=== PATIENT | male | born 1985 | race Caucasian/White ===

== ENCOUNTER → 2017-06-12 | Outpatient (CLI) | payer OTHER ==
[~2017-06-12] MED LIST: AMOX500T PO; AMOX875T PO; CEFA500C2 PO; LVQ750 PO; METR-163 PO; OPTIRAY 320 IV PRN; OXYC1TAB3 PO; PSYL48.59 PO
--- NOTE | 2017-06-12 17:08 | DIAGNOSTIC IMAGING REPORT ---
CT ABD/PELVIS IV AND ORAL CONT CLINICAL HISTORY: ACUTE ABDOMINAL PAIN, R/O DIVERTICULITIS COMPARISON STUDY: 09/12/2013 TECHNIQUE: Following the IV administration of 94 mL of Optiray-320, CT scan of the abdomen and pelvis was performed from the lung bases to the proximal femurs. Images are reviewed in the axial, sagittal, and coronal planes. IV contrast was administered without complication. A dose lowering technique was utilized adhering to the principles of ALARA. CT DOSE: 674.61 mGy.cm FINDINGS: Lower chest: There is a small hiatal hernia. Liver: The contrast-enhanced liver is normal in size, contour, and attenuation. There is no intrahepatic biliary ductal dilatation. The hepatic veins and portal veins are patent. Gallbladder: Unremarkable. Spleen: Normal in size and attenuation. Pancreas: Unremarkable. Adrenal glands: Unremarkable. Kidneys: There is symmetric renal cortical enhancement. The kidneys are normal in size without hydronephrosis. Bowel: There are no transition zones indicate bowel obstruction. The appendix appears normal. There is sigmoid wall thickening and infiltration the perisigmoid fat. There is an inflamed diverticulum. The findings are indicative of acute diverticulitis. There are no fluid collections to indicate a peridiverticular abscess. Peritoneum: There is no intraperitoneal free air or abdominal ascites. Vasculature: The abdominal aorta is normal in course and caliber. Adenopathy: None. Pelvic viscera: The bladder, and pelvic viscera are unremarkable. Skeletal structures: No destructive osseous lesions are seen. IMPRESSION: 1. Acute sigmoid diverticulitis. No evidence of abscess. Electronically signed by: Mike iLndo M.D. 06/12/2017 5:06 PM Dictated Date/Time: 06/12/2017 5:03 PM
== END | disposition home or self-care (01) ==
LOC: C.CTS 14:45
PROVIDERS: ATTEND Nurse Practitioner Family
DX: R10.32 Left lower quadrant pain (principal); K57.30 Diverticulosis of large intestine without perforation or abscess without bleeding

== ENCOUNTER → 2017-06-12 | Outpatient (CLI) | payer OTHER ==
[~2017-06-12] MED LIST changes: -OPTIRAY 320 IV PRN
[2017-06-12 17:53] LABS: BASO % 0.2 %; BASO ABS # 0.04 K/uL (0-0.2); COMPLETE YES; EOS % 1.9 %; HEMATOCRIT 46.4 % (42-52); IG% 0.5 %; LYMPH % 10.7 %; LYMPH ABS # 1.77 K/uL (1.2-3.4); MEAN CORPUSCULAR HEMOGLOBIN 29.1 pg (25-34); MEAN CORPUSCULAR HGB CONC 34.3 g/dl (32-36); MEAN PLATELET VOLUME 11.8 fL (7.4-10.4); MONO % 9.6 %; NEUT % 77.1 %; PLATELET COUNT 237 K/uL (130-400); RED BLOOD COUNT 5.46 M/uL (4.7-6.1); WHITE BLOOD COUNT 16.59 K/uL (4.8-10.8)
[2017-06-12 18:46] LABS: BLOOD UREA NITROGEN 14 mg/dl (7-18); BUN/CREATININE RATIO 13.1 (10-20); CALCIUM 9.3 mg/dl (8.5-10.1); CARBON DIOXIDE 27 mmol/L (21-32); CHLORIDE 104 mmol/L (98-107); GLUCOSE 122 mg/dl (70-99); SODIUM 139 mmol/L (136-145)
== END | disposition home or self-care (01) ==
LOC: C.LABPVFM 13:36
PROVIDERS: ATTEND Nurse Practitioner Family
DX: R10.9 Unspecified abdominal pain (principal)

== ENCOUNTER 2017-06-13 13:56 | Emergency (ER) | payer OTHER ==
[~2017-06-13] VITALS: Ht 185.4 cm; Wt 104.2 kg
[~2017-06-13 13:56] MED LIST changes: -AMOX500T PO; -AMOX875T PO; -OXYC1TAB3 PO; -PSYL48.59 PO
[2017-06-13 13:59] VITALS: TEMP 36.8; Ht 185.4 cm; Wt 104.2 kg
[2017-06-13] MEDS ORDERED: OXYC1TAB3 PO (14:48)
--- NOTE | 2017-06-13 15:06 | EMERGENCY ROOM VISIT NOTE ---
History Report prepared by Yair: Reba Perez Under the Supervision of: Dr. Joe Torres D.O. First contact with patient: 14:39 Chief Complaint: ABDOMINAL PAIN Stated Complaint: DIVERTICULITIS Nursing Triage Summary: Diverticulitis History of Present Illness The patient is a 32 year old male who presents to the Emergency Room with complaints of persistent abdominal pain starting yesterday. The patient was diagnosed with diverticulitis yesterday through CT scan. He was prescribed Flagyl and Levaquin. He has been taking the antibiotics without relief. He was not prescribed any pain medications. He has been taking Aleve with some relief. His PCP had instructed that if he was still having pain after a day, he should come to the Emergency Room to receive IV antibiotics. He has worsening pain with sneezing. He has pain relief with lying down. The patient also complains of nausea but denies vomiting. He reports a loss of appetite. He denies fevers, chills, or any other complaints. He does not have any other medical problems. He denies any history of abdominal surgeries. Source of History: patient Onset: yesterday Position: abdomen Timing: other (persistent) Modifying Factors (Worsening): other (sneezing) Modifying Factors (Relieving): other (Aleve with some relief; antibiotics as prescribed without relief; relief with lying down) Associated Symptoms: + nausea, No fevers, No chills, No vomiting Review of Systems See HPI for pertinent positives & negatives. A total of 10 systems reviewed and were otherwise negative. Past Medical & Surgical Medical Problems: (1) elbow surgery (2) knee surgery (3) [place] Teeth Removal Family History Diabetes mellitus Social History Smoking Status: Never Smoker Alcohol Use: none Marital Status: Housing Status: lives with family Occupation Status: employed Current/Historical Medications Scheduled Levofloxacin (Levofloxacin), 750 MG PO DAILY Metronidazole (Flagyl), 500 MG PO Q6H Scheduled PRN Oxycodone Immediate Rel Tab (Roxicodone Ir), 1-2 TAB PO Q4H PRN for Severe Pain Allergies Coded Allergies: No Known Allergies (Verified , 09/11/13) Physical Exam Vital Signs Date Time Temp Pulse Resp B/P (MAP) Pulse Ox O2 Delivery O2 Flow Rate FiO2 06/13/17 15:08 82 18 143/77 96 06/13/17 13:59 36.8 80 15 141/92 95 Room Air Physical Exam GENERAL: Patient is awake, alert, and in no acute distress. Patient is resting comfortably and showing no signs of anxiety EYES: The conjunctivae are clear. The pupils are round and reactive. EARS, NOSE, MOUTH AND THROAT: The nose is without any evidence of any deformity. Mucous membranes are moist tongue is midline NECK: The neck is nontender and supple. RESPIRATORY: Normal respiratory effort is noted there is no evidence of wheezing rhonchi or rales CARDIOVASCULAR: Regular rate and rhythm noted there no murmurs rubs or gallops normal S1 normal S2 GASTROINTESTINAL: The abdomen is mildly distended but soft. Bowel sounds are present in all quadrants. Abdomen is tender in the left lower quadrant. There is no guarding or rigidity. MUSCULOSKELETAL/EXTREMITIES: There is no evidence of gross deformity full range of motion is noted in the hips and shoulders SKIN: There is no obvious evidence of any rash. There are no petechiae, pallor or cyanosis noted. NEUROLOGIC: Patient is awake alert and oriented x3 Medical Decision & Procedures ED Course 1439: The patient was evaluated in room B10. A complete history and physical examination were performed. 1502: Upon reevaluation, the patient is resting comfortably. I discussed the results and treatment plan with him. He verbalized agreement of the treatment plan. He was discharged home. Medical Decision Prior records/ancillary studies reviewed. Triage Nursing notes reviewed. The patient's history was concerning for abdominal pain. Differential diagnosis: Etiologies such as appendicitis, diverticulitis, PUD, biliary pathology, UTI, pancreatitis, obstruction, mesenteric ischemia, aortic pathology, infections, inflammatory bowel disease, renal colic, as well as others were entertained. Medication Reconciliation: I attest that I have personally reviewed the patient' s current medications list. Patient was found to have a slightly elevated blood pressure due to circumstances. I do not believe that the patient requires hypertension monitoring. The patient is a 32-year-old male who presented to the emergency department for left lower quadrant abdominal pain. The patient was seen by his family doctor and had an outpatient CT yesterday which revealed diverticulitis. The patient was told to go to the emergency department in 24 hours for IV antibiotics if his pain did not resolve although he was not started on pain medication. The patient's physical exam was not consistent with an acute surgical abdomen. I reviewed the patient's laboratory radiographic studies from yesterday. His CT did not reveal any signs of perforation or abscess. The patient does not a fever. He was started on Levaquin and Flagyl by his primary care physician and states that he was compliant with this medication to date. He was encouraged to continue all medications as prescribed and follow-up with his family doctor. He was encouraged to return to emergency department if he develop worsening pain high fever rigid abdomen or if need arises. Impression Primary Impression: Diverticulitis Scribe Attestation The scribe's documentation has been prepared under my direction and personally reviewed by me in its entirety. I confirm that the note above accurately reflects all work, treatment, procedures, and medical decision making performed by me. Departure Information Dispostion Home / Self-Care Prescriptions Oxycodone Immediate Rel Tab (ROXICODONE IR) 5 Mg Tab 1-2 TAB PO Q4H Y for Severe Pain, #24 TAB Prov: Joe Torres, DO 06/13/17 Referrals No Doctor, Assigned (PCP) Forms Call Back Authorization, HOME CARE DOCUMENTATION FORM, IMPORTANT VISIT INFORMATION Patient Instructions Diverticulitis Christian, My [facility] Additional Instructions Continue all medications as prescribed. Drink plenty of clear liquids. I would recommend an [id number] stool softener if he were going to take the stronger pain medication. Continue using Motrin and Tylenol as directed for mild pain. Return to the emergency Department immediately if he develop worsening symptoms such as severe nausea vomiting worsening pain high fever or if the need arises. Problem Qualifiers Primary Impression: Diverticulitis Diverticulitis site: unspecified part of intestinal tract Diverticulitis bleeding: unspecified bleeding status Diverticulitis complication: without perforation or abscess Qualified Codes: K57.92 - Diverticulitis of intestine, part unspecified, without perforation or abscess without bleeding
[2017-06-13 15:08] VITALS: BP 143/77; PULSE 82; O2SAT 96
[2017-08-13] MEDS ORDERED: PSYL48.59 PO (15:35)
== END 2017-06-13 15:09 | disposition home or self-care (01) ==
LOC: C.EDB 13:58
DX: K57.92 Diverticulitis of intestine, part unspecified, without perforation or abscess without bleeding (principal); Z98.818 Other dental procedure status; Z98.890 Other specified postprocedural states; Z83.3 Family history of diabetes mellitus

== ENCOUNTER 2017-06-16 23:18 | Inpatient (IN) | payer OTHER ==
[~2017-06-16] VITALS: Ht 185.4 cm; Wt 102.7 kg
[~2017-06-16 23:18] MED LIST changes: -CEFA500C2 PO; +OXYC1TAB3 PO
[2017-06-16] MEDS ORDERED: SODIUM CHLORIDE 0.9% 1000ML 1,000 ML IV STA (23:46)
[2017-06-16] MEDS ORDERED: PIPERACILLIN/TAZOBACTAM 4.5 GM/100ML D5W IV STA (23:46)
[2017-06-17] VITALS (10 sets, daily range): BP systolic 122–145; BP diastolic 75–91; PULSE 63–78; TEMP 36.6–36.8; O2SAT 95–97; Ht 185.4 cm; Wt 102.7 kg
[2017-06-17 00:18] LABS: BASO % 0.4 %; BASO ABS # 0.05 K/uL (0-0.2); COMPLETE YES; EOS % 2.4 %; HEMATOCRIT 45.8 % (42-52); LYMPH % 15.9 %; LYMPH ABS # 1.95 K/uL (1.2-3.4); MEAN CELL VOLUME 85.1 fL (80-100); MEAN CORPUSCULAR HEMOGLOBIN 28.4 pg (25-34); MEAN CORPUSCULAR HGB CONC 33.4 g/dl (32-36); MEAN PLATELET VOLUME 10.3 fL (7.4-10.4); MONO % 6.1 %; NEUT % 74.2 %; PLATELET COUNT 291 K/uL (130-400); RED BLOOD COUNT 5.38 M/uL (4.7-6.1); WHITE BLOOD COUNT 12.28 K/uL (4.8-10.8)
[2017-06-17 00:25] LABS: URINE APPEARANCE CLEAR (CLEAR); URINE BILIRUBIN NEG (NEG); URINE COLOR DK YELLOW; URINE NITRITE NEG (NEG); URINE SPECIFIC GRAVITY 1.028 (1.000-1.030); UROBILINOGEN NEG (NEG); ZZUR CULT IF INDIC CLEAN CATCH NO
[2017-06-17] MEDS ORDERED: ONDANSETRON INJ 2 MG/ML 2 ML VIAL IV PRN (00:30)
[2017-06-17 00:39] LABS: BUN/CREATININE RATIO 13.8 (10-20); CREATININE 0.92 mg/dl (0.60-1.40); POTASSIUM 3.9 mmol/L (3.5-5.1)
--- NOTE | 2017-06-17 00:43 | EMERGENCY ROOM VISIT NOTE ---
History Report prepared by Yair: Zoila Lin Under the Supervision of: Dr. Hiram Marroquin D.O. First contact with patient: 23:37 Chief Complaint: GI ASSESSMENT Stated Complaint: DIVERTICULITIS W/PERFORATION History of Present Illness The patient is a 32 year old male who presents to the Emergency Room with complaints of persistent abdominal pain starting 4 days ago. The patient was diagnosed with diverticulitis after going to the ED with lower abdominal pain 4 days ago. He was started on Flagyl and Levaquin. Today, he went to the ED in [place] where he was on vacation because his pain was not improving. He was diagnosed with a diverticulitis with microperforation. He was to be admitted there for IV antibiotics, but he left because he did not want to stay in [place]. There were no plans for surgery. They told him to present straight to the ED when he arrived home. His symptoms have improved since he went to the ED in [place]. He no longer has lower abdominal pain, but complains of testicular pain. He has nausea. He denies any vomiting. Source of History: patient, spouse/significant other Onset: 4 days ago Position: abdomen Quality: other (pain) Timing: other (persistent) Associated Symptoms: + nausea, No vomiting Note: Pt reports groin pain. Review of Systems See HPI for pertinent positives & negatives. A total of 10 systems reviewed and were otherwise negative. Past Medical & Surgical Medical Problems: (1) Diverticulitis of intestine with perforation without abscess (2) elbow surgery (3) knee surgery (4) [place] Teeth Removal Family History Diabetes mellitus Social History Smoking Status: Never Smoker Alcohol Use: none Marital Status: Housing Status: lives with family Occupation Status: employed Current/Historical Medications Scheduled Levofloxacin (Levofloxacin), 750 MG PO DAILY Metronidazole (Flagyl), 500 MG PO Q6H Allergies Coded Allergies: No Known Allergies (Verified , 06/17/17) Physical Exam Vital Signs Date Time Temp Pulse Resp B/P (MAP) Pulse Ox O2 Delivery O2 Flow Rate FiO2 06/16/17 23:30 36.7 63 20 146/95 97 Room Air Physical Exam CONSTITUTIONAL/VITAL SIGNS: Reviewed / noted above. GENERAL: Non-toxic in appearance. INTEGUMENTARY: Warm, dry, and [place]. HEAD: Normocephalic. EYES: without scleral icterus or trauma. ENT/OROPHARYNX: clear and moist. LYMPHADENOPATHY/NECK: Is supple without lymphadenopathy or meningismus. RESPIRATORY: Lungs clear and equal. CARDIOVASCULAR: Regular rate and rhythm. GI/ABDOMEN: Soft with mild tenderness to the left lower abdomen. No organomegaly or pulsatile mass. No rebound or guarding. Normal bowel sounds. EXTREMITIES: Warm and well perfused. BACK: No CVA tenderness. NEUROLOGICAL: Intact without focal deficits. PSYCHIATRIC: normal affect. MUSCULOSKELETAL: Normally developed with good muscle tone. Medical Decision & Procedures ER Provider Diagnostic Interpretation: Radiology results from [facility] as stated below per my review and radiologist interpretation: CT abdomen/pelvis: Short segment of thickened, inflamed sigmoid colon with adjacent locules of air , compatible with acute sigmoid diverticulitis with microperforation. Moderate pericolonic inflammatory/phlegmonous change, without focal fluid collection/ abscess. No gross free air. No bowel obstruction. Laboratory Results 06/17/17 00:02 Red Blood Count 5.38, Mean Corpuscular Volume 85.1, Mean Corpuscular Hemoglobin 28.4, Mean Corpuscular Hemoglobin Concent 33.4, Mean Platelet Volume 10.3, Neutrophils (%) (Auto) 74.2, Lymphocytes (%) (Auto) 15.9, Monocytes (%) (Auto) 6.1, Eosinophils (%) (Auto) 2.4, Basophils (%) (Auto) 0.4, Neutrophils # (Auto) 9.11, Lymphocytes # (Auto) 1.95, Monocytes # (Auto) 0.75, Eosinophils # (Auto) 0.30, Basophils # (Auto) 0.05 06/17/17 00:02 Test 06/17/17 00:02 06/17/17 00:10 White Blood Count 12.28 K/uL (4.8-10.8) Red Blood Count 5.38 M/uL (4.7-6.1) Hemoglobin 15.3 g/dL (14.0-18.0) Hematocrit 45.8 % (42-52) Mean Corpuscular Volume 85.1 fL (80-100) Mean Corpuscular Hemoglobin 28.4 pg (25-34) Mean Corpuscular Hemoglobin Concent 33.4 g/dl (32-36) Platelet Count 291 K/uL (130-400) Mean Platelet Volume 10.3 fL (7.4-10.4) Neutrophils (%) (Auto) 74.2 % Lymphocytes (%) (Auto) 15.9 % Monocytes (%) (Auto) 6.1 % Eosinophils (%) (Auto) 2.4 % Basophils (%) (Auto) 0.4 % Neutrophils # (Auto) 9.11 K/uL (1.4-6.5) Lymphocytes # (Auto) 1.95 K/uL (1.2-3.4) Monocytes # (Auto) 0.75 K/uL (0.11-0.59) Eosinophils # (Auto) 0.30 K/uL (0-0.5) Basophils # (Auto) 0.05 K/uL (0-0.2) RDW Standard Deviation 38.9 fL (36.4-46.3) RDW Coefficient of Variation 12.6 % (11.5-14.5) Immature Granulocyte % (Auto) 1.0 % Immature Granulocyte # (Auto) 0.12 K/uL (0.00-0.02) Anion Gap 6.0 mmol/L (3-11) Est Creatinine Clear Calc Drug Dose 145.4 ml/min Estimated GFR () 127.1 Estimated GFR (Non- 109.7 BUN/Creatinine Ratio 13.8 (10-20) Calcium Level 9.0 mg/dl (8.5-10.1) Direct Bilirubin 0.1 mg/dl (0-0.2) Aspartate Amino Transf (AST/SGOT) 28 U/L (15-37) Alanine Aminotransferase (ALT/SGPT) 53 U/L (12-78) Albumin 3.4 gm/dl (3.4-5.0) Laboratory results as stated above per my review. Medications Administered Medications (Trade) Dose Ordered Sig/Akhil Route Start Time Stop Time Status Last Admin Dose Admin Sodium Chloride 1,000 ml @ 999 mls/hr Q1H1M STAT IV 06/16/17 23:46 06/17/17 00:46 06/17/17 00:10 999 MLS/HR Piperacillin Sod/ Tazobactam Sod (Zosyn Iv) 4.5 gm NOW STAT IV 06/16/17 23:46 06/16/17 23:48 DC 06/17/17 00:10 4.5 GM ED Course 2338: Previous medical records were reviewed. The patient was evaluated in room B12B. A complete history and physical examination was performed. 2346: Zosyn Iv 4.5 gm IV, NSS 1000 ml @ 999 mls/hr IV. 2356: I discussed the patient's case with Dr. Prieto, [facility] hospitalist service. The patient will be evaluated for further treatment and disposition. 235: On reevaluation, the patient is stable. I discussed the results and findings with him. He verbalized agreement of the treatment plan. The patient will be evaluated for further management and care. Medical Decision Differential considered: pancreatitis, hepatitis, or acute cholecystitis, AAA, UTI, pyelonephritis, kidney stones, appendicitis, diverticulitis, shingles, bowel obstruction mesenteric ischemia, intussusception,hernia, testicular torsion. This is a 32-year-old male who presents to the ED with a chief complaint of diverticulitis with microperforation. The patient was admitted to hospital in [place] earlier today. He was diagnosed with diverticulitis with micro- perforation and phlegmon. He brought the CT scan with him. He wanted to be admitted here and he left the hospital earlier today. He was diagnosed with diverticulitis on Saturday by his PCP and started on Levaquin and Flagyl. Despite this, his symptoms worsen today. The patient's exam reveals mild left lower abdominal tenderness. White blood cell count was 12. Chemistry panel was unremarkable. The patient will be seen by the hospitalist for further inpatient care. He was given IV Zosyn. Medication Reconcilliation Current Medication List: was personally reviewed by me Blood Pressure Screening Patient's blood pressure: Elevated blood pressure Blood pressure disposition: Elevated BP felt to be situational Consults Time Called: 2351 [facility] Returned Call: [phone] Discussed the patient's case. The patient will be evaluated for further treatment and disposition. Impression Primary Impression: Diverticulitis of colon with perforation Scribe Attestation The scribe's documentation has been prepared under my direction and personally reviewed by me in its entirety. I confirm that the note above accurately reflects all work, treatment, procedures, and medical decision making performed by me. Departure Information Dispostion Being Evaluated By Hospitalist Referrals No Doctor, Assigned (PCP) Patient Instructions My [facility]
[2017-06-17 00:53] LABS: MANUAL MICROSCOPIC REQUIRED? NO; REVIEW REQ? NO
--- NOTE | 2017-06-17 00:53 | History and Physical ---
History & Physical Date & Time of Service: Jun 17, 2017 at 00:34 Chief Complaint: Diverticulitis W/Perforation Primary Care Physician: No Doctor, Assigned History of Present Illness Source: patient, hospital records Mr Brice is a 32 year old male who presents the ER with diagnosed diverticulitis with microperforation. He was diagnosed 4 days previously in [facility] ER with diverticulitis and treated as an outpatient with Levaquin and metronidazole. He went back to a full diet immediately after being discharged from the ER. His pain has not significantly worsened or improved since then, so he called his PCP at [facility] and recommended he goes to the ER. The patient was in [place] so presented to [facility] in [facility]. CT scan showed acute sigmoid diverticulitis with microperforation , no focal collection/abscess, no gross free air. He received ertapenem and 2L IV fluid bolus. He signed out AMA as he wished to return home and so his drove him to [facility] ER (via his house to drop off the kids). Pain in his left groin for 1 week, some radiation to his left testicle, no change with bowel movements. No GI bleeding or melena noted. Last BM was while in the ER and was reportedly normal for him. Associated nausea.He denies any fevers/chills or sudden worsening of his pain. This is his second episode of diverticulitis (see PMHx). He denies any chronic constipation, personal or family history of inflammatory bowel disease or colon cancer. Past Medical/Surgical History Medical Problems: Hx diverticulitis 5 years previously Hx Staph knee infection Past surgeries: (1) x2 right elbow arthroscopy (2) x3 right knee arthroscopy, ACL graph (3) [place] Teeth Removal (4) Myringotomy Family History Diabetes mellitus Social History Smoking Status: Never Smoker Smokeless Tobacco Use: No Alcohol Use: none Drug Use: none Marital Status: Housing status: lives with family Occupational Status: employed Immunizations History of Influenza Vaccine: No History of Tetanus Vaccine?: No History of Pneumococcal: No History of Hepatitis B Vaccine: No Multi-Drug Resistant Organisms History of MDRO: No Allergies Coded Allergies: No Known Allergies (Verified , 06/17/17) Home Medications Scheduled Levofloxacin (Levofloxacin), 750 MG PO DAILY Metronidazole (Flagyl), 500 MG PO Q6H Review of Systems Constitutional: No fever, No chills Eyes: No worsening of vision ENT: No hearing loss Respiratory: No cough, No shortness of breath Cardiovascular: No chest pain, No edema Abdomen: + pain (see HPI), + nausea, No vomiting Musculoskeletal: No joint pain, No muscle pain Genitourinary - Male: No hematuria, No dysuria, No urinary frequency, No urinary urgency Neurologic: No memory loss Psychiatric: No depression symptoms Endocrine: No fatigue, No excessive thirst, No excessive urination Hematologic / Lymphatic: No abnormal bleeding/bruising Integumentary: No rash, No itch Physical Exam Vital Signs Date Time Temp Pulse Resp B/P (MAP) Pulse Ox O2 Delivery O2 Flow Rate FiO2 06/16/17 23:30 36.7 63 20 146/95 97 Room Air General Appearance: WD/WN, no apparent distress Head: normocephalic, atraumatic Eyes: normal inspection (pupils equal) ENT: normal ENT inspection (external) Respiratory/Chest: chest non-tender, lungs clear, normal breath sounds, no respiratory distress, no accessory muscle use Cardiovascular: regular rate, rhythm, no edema, no murmur, normal peripheral pulses Abdomen/GI: normal bowel sounds, soft, + tenderness (suprapubic, no rebound or guarding) Genitourinary - Male: normal male genitalia, normal testicles (no pain on left testicle), + pertinent finding (left sided inguinal hernia felt on coughing) Back: no CVA tenderness Extremities/Musculoskelatal: no calf tenderness, normal capillary refill, no pedal edema 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, no motor/sensory deficits, alert, normal mood/affect, oriented x 3 Skin: normal color, warm/dry, no rash Diagnostics Laboratory Results Results Past 24 Hours Test 06/17/17 00:02 06/17/17 00:10 Range/Units White Blood Count 12.28 4.8-10.8 K/uL Red Blood Count 5.38 4.7-6.1 M/uL Hemoglobin 15.3 14.0-18.0 g/dL Hematocrit 45.8 42-52 % Mean Corpuscular Volume 85.1 80-100 fL Mean Corpuscular Hemoglobin 28.4 25-34 pg Mean Corpuscular Hemoglobin Concent 33.4 32-36 g/dl Platelet Count 291 130-400 K/uL Mean Platelet Volume 10.3 7.4-10.4 fL Neutrophils (%) (Auto) 74.2 % Lymphocytes (%) (Auto) 15.9 % Monocytes (%) (Auto) 6.1 % Eosinophils (%) (Auto) 2.4 % Basophils (%) (Auto) 0.4 % Neutrophils # (Auto) 9.11 1.4-6.5 K/uL Lymphocytes # (Auto) 1.95 1.2-3.4 K/uL Monocytes # (Auto) 0.75 0.11-0.59 K/uL Eosinophils # (Auto) 0.30 0-0.5 K/uL Basophils # (Auto) 0.05 0-0.2 K/uL RDW Standard Deviation 38.9 36.4-46.3 fL RDW Coefficient of Variation 12.6 11.5-14.5 % Immature Granulocyte % (Auto) 1.0 % Immature Granulocyte # (Auto) 0.12 0.00-0.02 K/uL Diagnostic Radiology CT abdo/pelvis with contrast performed at [facility] in [place], [place] Impression: Short segment of thickened, inflamed sigmoid colon with adjacent lobules of air, compatible with acute sigmoid diverticulitis with microperforation. Moderate pericolonic inflammatory/phlegmonous change, without focal fluid collection/abscess. No gross free air. No bowel obstruction. EKG pending Impression Assessment and Plan 32 year old male with diverticulitis failed outpatient treatment Diverticulitis with microperforation - treat with Zosyn - acetaminophen IV +/- morphine IV for pain - Zofran for nausea - NPO + IV fluids - Consult surgery - discussed with Dr Albarran who will see in morning. VTE Prophylaxis - deferred to day team pending surgery decision - SCDs + TEDs Code Full Disposition - admit to telemetry Level of Care Telemetry Resuscitation Status FULL RESUSCITATION VTE Prophylaxis VTE Risk Assessment Done? Y/N: Yes Risk Level: Very Low Given or contraindicated: Isabel Boswell SCD's Resident Tracking Resident Involvement: Resident Care Provided Care Provided: Adult ED
[2017-06-17] MEDS ORDERED: MoRPHine SULFATE 2 MG/ML CARP IV PRN (02:15)
[2017-06-17] MEDS ORDERED: ACETAMINOPHEN IV 650 MG in EMPTY BAG 0 ML IV PRN (02:15)
--- NOTE | 2017-06-17 03:19 | HISTORY & PHYSICAL EXAMINATION ---
DATE OF ADMISSION: 06/17/2017 ADDENDUM This is an addendum to the physician resident's note, Dr. Anjum Richard. I have seen the patient in conjunction with the resident, Dr. Richard. I have reviewed the orders, the patient's history and the H&P and will make following addendum. This is a 32-year-old male who does not have any significant past medical history aside from a bout of diverticulitis 5 years ago. He presented to the hospital in [place], where he was diagnosed with diverticulosis and placed on outpatient antibiotics with Levaquin and Flagyl. The pain worsened and he represented to the hospital. He was diagnosed with a worsening diverticulosis with perforation. He was sent to be admitted; however, he stated that he prefers to be admitted close to home and came to [facility] for admission. We were able to confirmed sigmoid diverticulosis with perforation and we will admit the patient for IV antibiotics, bowel rest, IV fluids and evaluation by the surgical service. PHYSICAL EXAMINATION: GENERAL: This is an overweight young male. He is awake, alert, and oriented x3. HEAD AND NECK: No JVD, bruits, thrush or icterus. HEART: S1 and S2, regular, no murmurs. LUNGS: Clear to auscultation bilaterally. ABDOMEN: Tender primarily in the left lower quadrant. No guarding or rebound. EXTREMITIES: No clubbing, cyanosis or edema. NEUROLOGIC: Awake, alert, and oriented x3. He maintains his coordination. No strength or sensory deficits. No other focal deficits. SKIN: No significant rashes or ulcers. PLAN: The plan will be as follows: The patient will be placed on IV antibiotics with Zosyn. We will place him on bowel rest, provide him with IV fluids and he will see the surgical service in the a.m. or sooner if needed. I have discussed the above with the patient and a resident. Please see the H&P for full details. [facility]ITALCresencio
[2017-06-17] MEDS: SODIUM CHLORIDE 0.9% 1000ML 1,000 ML IV SCH ×2 (04:34→07:10)
[2017-06-17] MEDS: PIPERACILL/TAZOBAC IV 3.375 GM in DEXTROSE 5% 100ML 100 ML IV SCH ×3 (05:04→21:51)
--- NOTE | 2017-06-17 08:47 | Medical Consult ---
Consultation Date of Consultation: Jun 17, 2017. Attending Physician: Enrique Prieto M.D. History of Present Illness 32 y/o male diagnosed with his second episode of diverticulitis last week and treated with outpatient Levaquin and Flagyl. He was on vacation in [place] over the weekend, had increasing pain and was seen in the ED where CT then showed microperforation. He then returned to [place] for further treatment /admission. This morning he denies pain. Had colonoscopy in 2012, diverticulosis was not evident at that time. He has not had any symptoms in the last several years. Past Medical/Surgical History Medical Problems: (1) Diverticulitis of intestine with perforation without abscess (2) elbow surgery (3) knee surgery (4) [place]eth Removal Family History Diabetes mellitus Social History Smoking Status: Never Smoker Smokeless Tobacco Use: No Alcohol Use: none Drug Use: none Marital Status: Housing Status: lives with family Occupation Status: employed Allergies Coded Allergies: No Known Allergies (Verified , 06/17/17) Current Inpatient Medications Current Inpatient Medications Medications (Trade) Dose Ordered Sig/Akhil Route Start Time Stop Time Status Last Admin Dose Admin Ondansetron HCl (Zofran Inj) 4 mg Q6H PRN IV 06/17/17 00:30 07/17/17 00:29 Piperacillin Sod/ Tazobactam Sod 3.375 gm/Dextrose 115 ml @ 28.75 mls/ hr Q8H IV 06/17/17 06:00 06/27/17 05:59 06/17/17 05:04 28.75 MLS/HR Sodium Chloride 1,000 ml @ 150 mls/hr Q6H40M IV 06/17/17 00:30 07/17/17 00:29 06/17/17 04:34 150 MLS/HR Morphine Sulfate (MoRPHine SULFATE INJ) 2 mg Q2H PRN IV 06/17/17 02:15 07/01/17 02:14 Acetaminophen 650 mg/Empty Bag 65 ml @ 260 mls/hr Q6H PRN IV 06/17/17 02:15 07/17/17 02:14 Review of Systems Constitutional: No fever, No chills Abdomen: + pain, No nausea Physical Exam Date Time Temp Pulse Resp B/P (MAP) Pulse Ox O2 Delivery O2 Flow Rate FiO2 06/17/17 08:10 96 Room Air 7/24/17 07:24 36.7 69 18 128/75 (92) 96 Room Air 06/17/17 04:39 36.7 63 18 122/81 (95) 96 Room Air 06/17/17 04:00 Room Air 06/17/17 01:35 36.6 68 18 137/91 97 Room Air 06/17/17 01:06 60 18 140/90 96 Room Air 06/16/17 23:30 36.7 63 20 146/95 97 Room Air General Appearance: WD/WN, no apparent distress ENT: normal ENT inspection Respiratory/Chest: no respiratory distress, no accessory muscle use Cardiovascular: regular rate, rhythm Abdomen/GI: non tender, soft Laboratory Results Last 24 Hours Test 06/17/17 00:02 06/17/17 00:10 White Blood Count 12.28 K/uL Red Blood Count 5.38 M/uL Hemoglobin 15.3 g/dL Hematocrit 45.8 % Mean Corpuscular Volume 85.1 fL Mean Corpuscular Hemoglobin 28.4 pg Mean Corpuscular Hemoglobin Concent 33.4 g/dl Platelet Count 291 K/uL Mean Platelet Volume 10.3 fL Neutrophils (%) (Auto) 74.2 % Lymphocytes (%) (Auto) 15.9 % Monocytes (%) (Auto) 6.1 % Eosinophils (%) (Auto) 2.4 % Basophils (%) (Auto) 0.4 % Neutrophils # (Auto) 9.11 K/uL Lymphocytes # (Auto) 1.95 K/uL Monocytes # (Auto) 0.75 K/uL Eosinophils # (Auto) 0.30 K/uL Basophils # (Auto) 0.05 K/uL RDW Standard Deviation 38.9 fL RDW Coefficient of Variation 12.6 % Immature Granulocyte % (Auto) 1.0 % Immature Granulocyte # (Auto) 0.12 K/uL Sodium Level 143 mmol/L Potassium Level 3.9 mmol/L Chloride Level 108 mmol/L Carbon Dioxide Level 29 mmol/L Anion Gap 6.0 mmol/L Blood Urea Nitrogen 13 mg/dl Creatinine 0.92 mg/dl Est Creatinine Clear Calc Drug Dose 145.4 ml/min Estimated GFR () 127.1 Estimated GFR (Non- 109.7 BUN/Creatinine Ratio 13.8 Random Glucose 96 mg/dl Calcium Level 9.0 mg/dl Total Bilirubin 0.4 mg/dl Direct Bilirubin 0.1 mg/dl Aspartate Amino Transf (AST/SGOT) 28 U/L Alanine Aminotransferase (ALT/SGPT) 53 U/L Alkaline Phosphatase 82 U/L Total Protein 6.7 gm/dl Albumin 3.4 gm/dl Urine Color DK YELLOW Urine Appearance CLEAR Urine pH 6.0 Urine Specific [place] 1.028 Urine Protein NEG Urine Glucose (UA) NEG Urine Ketones NEG Urine Occult Blood NEG Urine Nitrite NEG Urine Bilirubin NEG Urine Urobilinogen NEG Urine Leukocyte Esterase TRACE Urine WBC (Auto) 0 /hpf Urine RBC (Auto) 0-4 /hpf Urine Hyaline Casts (Auto) 0 /lpf Urine Epithelial Cells (Auto) 5-10 /lpf Urine Bacteria (Auto) NEG Assessment & Plan diverticulitis, recurrent He is improving with IV antibiotics. Ok to begin clears. At his age, would recommend semi-elective colectomy which can be discussed during outpatient follow-up Seen with Dr. Albarran.
[2017-06-17] MEDS ORDERED: PIPERACILL/TAZOBAC CONSULT ACTIVE PRN (12:45)
--- NOTE | 2017-06-17 15:50 | Family Medicine Progress Note ---
Progress Note Date of Service Jun 17, 2017. Subjective Pt evaluation today including: conversation w/ patient, physical exam, chart review, lab review, review of inpatient medication list Pain: No pain reported PO Intake: Tolerating Clear Liquids Voiding: no voiding problems Mr. Brice is a 32 year old man who reports no new complaints today. He states that his abdominal pain is resolving and is down to a 1/10 discomfort, that is worse on walking. He denies nausea or vomiting, fever, chills. His last bowel movement was yesterday and did not have any blood in it. His last colonoscopy was 5 years ago when he had his last episode of diverticulitis and he has not had any issues since, with constipation, diarrhea or blood in his stools. He denies the presence of any skin lesions, both in the past and currently, as well as pain and stiffness in his back. Constitutional: No fever, No chills, No sweats Respiratory: No cough, No sputum, No wheezing, No shortness of breath Cardiovascular: No chest pain, No orthopnea, No PND, No edema Abdomen: No pain, No nausea, No vomiting, No diarrhea, No constipation, No GI bleeding All Other Systems: Reviewed and Negative Medications Current Inpatient Medications Medications (Trade) Dose Ordered Sig/Akhil Route Start Time Stop Time Status Last Admin Dose Admin Ondansetron HCl (Zofran Inj) 4 mg Q6H PRN IV 06/17/17 00:30 07/17/17 00:29 Piperacillin Sod/ Tazobactam Sod 3.375 gm/Dextrose 115 ml @ 28.75 mls/ hr Q8H IV 06/17/17 06:00 06/27/17 05:59 06/17/17 13:51 28.75 MLS/HR Morphine Sulfate (MoRPHine SULFATE INJ) 2 mg Q2H PRN IV 06/17/17 02:15 07/01/17 02:14 Piperacillin Sod/ Tazobactam Sod (Consult) 1 ea UD PRN N/A 06/17/17 12:45 07/17/17 12:44 Objective Vital Signs Date Time Temp Pulse Resp B/P (MAP) Pulse Ox O2 Delivery O2 Flow Rate FiO2 06/17/17 14:57 36.8 63 18 138/88 (105) 97 Room Air 06/17/17 14:10 36.8 76 18 142/88 (106) 97 Room Air 06/17/17 13:56 36.7 68 18 96 06/17/17 12:07 96 Room Air 06/17/17 11:04 36.7 68 18 145/89 (107) 97 Room Air 06/17/17 08:10 96 Room Air 06/17/17 07:24 36.7 69 18 128/75 (92) 96 Room Air 06/17/17 04:39 36.7 63 18 122/81 (95) 96 Room Air 06/17/17 04:00 Room Air 06/17/17 01:35 36.6 68 18 137/91 97 Room Air 06/17/17 01:06 60 18 140/90 96 Room Air 06/16/17 23:30 36.7 63 20 146/95 97 Room Air Physical Exam General Appearance: WD/WN, no apparent distress Respiratory/Chest: chest non-tender, lungs clear, normal breath sounds, no respiratory distress, no accessory muscle use Cardiovascular: regular rate, rhythm, no edema, no gallop, no JVD, no murmur Abdomen: normal bowel sounds, non tender, soft, no organomegaly, no pulsatile mass Neurologic/Psychiatric: alert, normal mood/affect, oriented x 3 Laboratory Results 06/17/17 00:02 Red Blood Count 5.38, Mean Corpuscular Volume 85.1, Mean Corpuscular Hemoglobin 28.4, Mean Corpuscular Hemoglobin Concent 33.4, Mean Platelet Volume 10.3, Neutrophils (%) (Auto) 74.2, Lymphocytes (%) (Auto) 15.9, Monocytes (%) (Auto) 6.1, Eosinophils (%) (Auto) 2.4, Basophils (%) (Auto) 0.4, Neutrophils # (Auto) 9.11, Lymphocytes # (Auto) 1.95, Monocytes # (Auto) 0.75, Eosinophils # (Auto) 0.30, Basophils # (Auto) 0.05 06/17/17 00:02 Test 06/17/17 00:02 06/17/17 00:10 White Blood Count 12.28 K/uL (4.8-10.8) Red Blood Count 5.38 M/uL (4.7-6.1) Hemoglobin 15.3 g/dL (14.0-18.0) Hematocrit 45.8 % (42-52) Mean Corpuscular Volume 85.1 fL (80-100) Mean Corpuscular Hemoglobin 28.4 pg (25-34) Mean Corpuscular Hemoglobin Concent 33.4 g/dl (32-36) Platelet Count 291 K/uL (130-400) Mean Platelet Volume 10.3 fL (7.4-10.4) Neutrophils (%) (Auto) 74.2 % Lymphocytes (%) (Auto) 15.9 % Monocytes (%) (Auto) 6.1 % Eosinophils (%) (Auto) 2.4 % Basophils (%) (Auto) 0.4 % Neutrophils # (Auto) 9.11 K/uL (1.4-6.5) Lymphocytes # (Auto) 1.95 K/uL (1.2-3.4) Monocytes # (Auto) 0.75 K/uL (0.11-0.59) Eosinophils # (Auto) 0.30 K/uL (0-0.5) Basophils # (Auto) 0.05 K/uL (0-0.2) RDW Standard Deviation 38.9 fL (36.4-46.3) RDW Coefficient of Variation 12.6 % (11.5-14.5) Immature Granulocyte % (Auto) 1.0 % Immature Granulocyte # (Auto) 0.12 K/uL (0.00-0.02) Anion Gap 6.0 mmol/L (3-11) Est Creatinine Clear Calc Drug Dose 145.4 ml/min Estimated GFR () 127.1 Estimated GFR (Non- 109.7 BUN/Creatinine Ratio 13.8 (10-20) Calcium Level 9.0 mg/dl (8.5-10.1) Total Bilirubin 0.4 mg/dl (0.2-1) Direct Bilirubin 0.1 mg/dl (0-0.2) Aspartate Amino Transf (AST/SGOT) 28 U/L (15-37) Alanine Aminotransferase (ALT/SGPT) 53 U/L (12-78) Alkaline Phosphatase 82 U/L (45-117) Total Protein 6.7 gm/dl (6.4-8.2) Albumin 3.4 gm/dl (3.4-5.0) Urine Color DK YELLOW Urine Appearance CLEAR (CLEAR) Urine pH 6.0 (4.5-7.5) Urine Specific [place] 1.028 (1.000-1.030) Urine Protein NEG (NEG) Urine Glucose (UA) NEG (NEG) Urine Ketones NEG (NEG) Urine Occult Blood NEG (NEG) Urine Nitrite NEG (NEG) Urine Bilirubin NEG (NEG) Urine Urobilinogen NEG (NEG) Urine Leukocyte Esterase TRACE (NEG) Urine WBC (Auto) 0 /hpf (0-5) Urine RBC (Auto) 0-4 /hpf (0-4) Urine Hyaline Casts (Auto) 0 /lpf (0-5) Urine Epithelial Cells (Auto) 5-10 /lpf (0-5) Urine Bacteria (Auto) NEG (NEG) Assessment and Plan 32 year old male with diverticulitis who failed outpatient management Diverticulitis with microperforation - continue Zosyn - Thank you to Dr. Hinojosa for surgical consult - patient advanced to clear liquid diet, will further advance if he tolerates this - potential d/c tomorrow with outpatient follow up VTE Prophylaxis - SCDs + TEDs Code - Full Disposition - transferred to med/surg as does not require telemetry Resident Physician Supervision Note: I interviewed and examined the patient. Discussed with Dr. Power and agree with findings and plan as documented in the note. Any exceptions or clarifications are listed here: None Documented By: Bebeto Marsh feeling better wants to eat more wants off tele and IVF. notes that colo a few years ago showed no diverticulosis. reviewed - in fact none seen, however, multiple CT show evidence of diverticular disease viatls noted nad breathing unlabored no pallor or icterus. no abdominal pain to palp no guarding no rebound no rigidity apparent diverticulitis -- continue current abx since failed outpt treatment before. ongoing GI f/u - ?IBD sicne he continues to have wall thickening c/w diverticulitis but no diverticular disease on colo. no acute interventions needed at this time, but given discrepancy between CT and colo, would move slowly to surgical resection unless acute condition required it Resident Tracking Resident Involvement: Resident Care Provided Care Provided: Adult [facility] Medicine
--- NOTE | 2017-06-17 23:06 | Medical Student: [facility] ---
Med Student Progress Note Date of Service Jun 17, 2017. Subjective Pt evaluation today including: conversation w/ patient, physical exam, chart review, lab review, review of studies Pain: 1/10 PO Intake: tolerating PO diet Voiding: no voiding problems Nate Brice is a 32 yo male, with PMHx of an episode of diverticulitis 5 years ago without diverticula found on follow-up colonoscopy, who presented to the ED on 06/12 with LLQ abdominal pain that radiated to left testicle, with associated nausea, and treated with Levaquin and Flagyl. Patient's pain worsened and was seen in ED in [place] for worsening abdominal pain on 06/16, where abdominal CT showed acute sigmoid diverticulitis with microperforation, and he was treated with IV ertapenem, before leaving to come to [facility] for in- patient care. Patient currently rates his abdominal pain as 1/10, noting it is only minimally there when he is laying down, but worsens with movement. He denies any history of IBD, only noting his grandmother has diverticulosis. Patient currently denies any fever, chills, chest pain, palpitations, constipation, blood in stool , shortness of breath, headache, change in vision/hearing, or rash. Review of Systems Constitutional: No fever, No chills Eyes: No worsening of vision, No redness ENT: No hearing loss, No sore throat Respiratory: + wheezing, No cough, No shortness of breath Cardiac: No chest pain, No edema, No palpitations Abdomen: + pain (mostly resolved, 1/10 LLQ), No nausea, No vomiting, No diarrhea Musculoskeletal: No joint pain, No muscle pain Male : No dysuria, No urinary frequency, No incontinence Neurologic: No memory loss, No weakness Heme: No abnormal bleeding/bruising, No clotting problems Endo: No fatigue, No excessive urination Skin: No rash, No new/changing skin lesions Objective Vital Signs Date Time Temp Pulse Resp B/P (MAP) Pulse Ox O2 Delivery O2 Flow Rate FiO2 06/17/17 16:15 Room Air 06/17/17 14:57 36.8 63 18 138/88 (105) 97 Room Air 06/17/17 14:10 36.8 76 18 142/88 (106) 97 Room Air 06/17/17 13:56 36.7 68 18 96 06/17/17 12:07 96 Room Air 06/17/17 11:04 36.7 68 18 145/89 (107) 97 Room Air 06/17/17 08:10 96 Room Air 06/17/17 07:24 36.7 69 18 128/75 (92) 96 Room Air 06/17/17 04:39 36.7 63 18 122/81 (95) 96 Room Air 06/17/17 04:00 Room Air 06/17/17 01:35 36.6 68 18 137/91 97 Room Air 06/17/17 01:06 60 18 140/90 96 Room Air 06/16/17 23:30 36.7 63 20 146/95 97 Room Air Physical Exam General Appearance: WD/WN, no apparent distress ENT: normal ENT inspection Neck: supple Respiratory/Chest: chest non-tender, lungs clear, normal breath sounds, no respiratory distress, no accessory muscle use Cardiovascular: regular rate, rhythm (distant), no edema Abdomen: normal bowel sounds, soft (loud), no organomegaly, + tenderness ( minimal pain to palpation) Extremities: normal range of motion, non-tender, normal inspection, no pedal edema, no calf tenderness Neurologic/Psychiatric: no motor/sensory deficits, alert, normal mood/affect, oriented x 3 Skin: normal color, warm/dry, no rash Laboratory Results Last 24 Hours Test 06/17/17 00:02 06/17/17 00:10 White Blood Count 12.28 K/uL Red Blood Count 5.38 M/uL Hemoglobin 15.3 g/dL Hematocrit 45.8 % Mean Corpuscular Volume 85.1 fL Mean Corpuscular Hemoglobin 28.4 pg Mean Corpuscular Hemoglobin Concent 33.4 g/dl Platelet Count 291 K/uL Mean Platelet Volume 10.3 fL Neutrophils (%) (Auto) 74.2 % Lymphocytes (%) (Auto) 15.9 % Monocytes (%) (Auto) 6.1 % Eosinophils (%) (Auto) 2.4 % Basophils (%) (Auto) 0.4 % Neutrophils # (Auto) 9.11 K/uL Lymphocytes # (Auto) 1.95 K/uL Monocytes # (Auto) 0.75 K/uL Eosinophils # (Auto) 0.30 K/uL Basophils # (Auto) 0.05 K/uL RDW Standard Deviation 38.9 fL RDW Coefficient of Variation 12.6 % Immature Granulocyte % (Auto) 1.0 % Immature Granulocyte # (Auto) 0.12 K/uL Sodium Level 143 mmol/L Potassium Level 3.9 mmol/L Chloride Level 108 mmol/L Carbon Dioxide Level 29 mmol/L Anion Gap 6.0 mmol/L Blood Urea Nitrogen 13 mg/dl Creatinine 0.92 mg/dl Est Creatinine Clear Calc Drug Dose 145.4 ml/min Estimated GFR () 127.1 Estimated GFR (Non- 109.7 BUN/Creatinine Ratio 13.8 Random Glucose 96 mg/dl Calcium Level 9.0 mg/dl Total Bilirubin 0.4 mg/dl Direct Bilirubin 0.1 mg/dl Aspartate Amino Transf (AST/SGOT) 28 U/L Alanine Aminotransferase (ALT/SGPT) 53 U/L Alkaline Phosphatase 82 U/L Total Protein 6.7 gm/dl Albumin 3.4 gm/dl Urine Color DK YELLOW Urine Appearance CLEAR Urine pH 6.0 Urine Specific [place] 1.028 Urine Protein NEG Urine Glucose (UA) NEG Urine Ketones NEG Urine Occult Blood NEG Urine Nitrite NEG Urine Bilirubin NEG Urine Urobilinogen NEG Urine Leukocyte Esterase TRACE Urine WBC (Auto) 0 /hpf Urine RBC (Auto) 0-4 /hpf Urine Hyaline Casts (Auto) 0 /lpf Urine Epithelial Cells (Auto) 5-10 /lpf Urine Bacteria (Auto) NEG Assessment and Plan Assessment and Plan: Nate Brice is a 32 yo male with PMHx of diverticulitis, who presented to the ED with LLQ that radiated to L groin and associated nausea. CT of abdomen/ pelvis showed acute sigmoid diverticulitis with microperforation and moderate pericolonic inflammatory/phlegmonous changes. With treatment of piperacillin/ tazobactam, patient's symptoms have improved. 1) Diverticulitis, recurrent - Continue IV Piperacillin/Tazobactam - Continue IV fluids for maintenance, NPO was switched to PO as tolerated today - IV acetaminophen and IV morphine available PRN for pain - Zofran PRN for nausea, patient denying current symptoms and did not take Zofran overnight. - Consult surgery, who suggested outpatient follow-up for possible collectomy from removing part of sigmoid colon - Order p-ANCA and ASCA as diagnostic indicators of possible IBD diagnosis. - Plan for d/c home tomorrow. 2) Elevated BP - Most likely secondary to situation, trending down (140/90, 137/91, 122/81, 128 /75) Discharge planning: home
[2017-06-18] MEDS: PIPERACILL/TAZOBAC IV 3.375 GM in DEXTROSE 5% 100ML 100 ML IV SCH ×2 (05:52→14:00)
[2017-06-18 07:35] VITALS: BP 120/79; TEMP 36.8; O2SAT 96
[2017-06-18 07:37] LABS: CREATININE 0.96 mg/dl (0.60-1.40)
--- NOTE | 2017-06-18 09:41 | Surgery Progress Note ---
Surgery Progress Note Date of Service Jun 18, 2017. Subjective + feeling well, No complaints, No nausea, No vomiting Patient sitting up in bed eating eggs and toast. Reports that he is feeling much better- denies pain or discomfort. Feels ready to go home. Objective Vital Signs: Date Time Temp Pulse Resp B/P (MAP) Pulse Ox O2 Delivery O2 Flow Rate FiO2 06/18/17 07:35 36.8 16 120/79 (93) 96 Room Air 06/18/17 00:20 Room Air 06/17/17 23:02 36.7 78 16 138/86 (103) 95 Room Air 06/17/17 16:15 Room Air 06/17/17 14:57 36.8 63 18 138/88 (105) 97 Room Air 06/17/17 14:10 36.8 76 18 142/88 (106) 97 Room Air 06/17/17 13:56 36.7 68 18 96 06/17/17 12:07 96 Room Air 06/17/17 11:04 36.7 68 18 145/89 (107) 97 Room Air General Appearance: WD/WN, no apparent distress Abdomen: non tender, soft Laboratory Results: Results Past 24 Hours Test 06/18/17 04:44 06/18/17 06:31 Range/Units Creatinine 0.96 0.60-1.40 mg/dl Est Creatinine Clear Calc Drug Dose 139.1 ml/min Estimated GFR () 120.7 Estimated GFR (Non- 104.2 Assessment & Plan Dr. Albarran in to see and examine patient. Patient is certainly improved. From surgical standpoint ok to discharge when deemed ready by medicine's service. Will follow-up with Dr. Albarran in the office in 3-4 weeks for discussion on surgical plan moving forward.
[2017-06-18 09:42] LABS: BASO % 0.2 %; BASO ABS # 0.03 K/uL (0-0.2); COMPLETE YES; EOS % 2.9 %; HEMATOCRIT 44.9 % (42-52); IG% 1.1 %; LYMPH % 15.8 %; LYMPH ABS # 1.92 K/uL (1.2-3.4); MEAN CELL VOLUME 84.4 fL (80-100); MEAN CORPUSCULAR HEMOGLOBIN 28.2 pg (25-34); MEAN CORPUSCULAR HGB CONC 33.4 g/dl (32-36); MEAN PLATELET VOLUME 10.4 fL (7.4-10.4); PLATELET COUNT 289 K/uL (130-400); RED BLOOD COUNT 5.32 M/uL (4.7-6.1); WHITE BLOOD COUNT 12.19 K/uL (4.8-10.8)
--- NOTE | 2017-06-18 10:29 | Medical Student: [facility] ---
Med Student Progress Note Date of Service Jun 18, 2017. Subjective Pain: 1/10 left groin pain with stooling PO Intake: tolerating low fiber PO diet Patient is feeling better and tolerating PO lower fiber diet since last night ( ice cream/crackers last night, eggs/toast for breakfast). He states he feels much better and wants to go home to continue his antibiotics. Patient reports his left lower groin pain is intermittent, 1/10, and only when trying to stool. He reports passing some gas and normal for him, but small quantity stool this morning. He denies nausea, constipation, or straining. 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 Surgical team came to bedside during interview, ordered a repeat CBC , and who told patient to follow-up in 3 months to discuss surgical options. Review of Systems Constitutional: No fever, No chills, No sweats Eyes: No worsening of vision, No redness ENT: No hearing loss, No nasal symptoms, No sore throat Respiratory: No cough, No shortness of breath Cardiac: No chest pain, No edema Abdomen: + pain (1/10 left groin pain with stooling), No nausea, No vomiting, No diarrhea, No constipation (denies constipation, patient thinks straining pain is secondary to not eating much by mouth) Musculoskeletal: No joint pain, No muscle pain Male : No dysuria, No urinary frequency Neurologic: No memory loss, No weakness, No numbness/tingling Skin: No rash, No new/changing skin lesions Objective Vital Signs Date Time Temp Pulse Resp B/P (MAP) Pulse Ox O2 Delivery O2 Flow Rate FiO2 06/18/17 07:35 36.8 16 120/79 (93) 96 Room Air 06/18/17 00:20 Room Air 06/17/17 23:02 36.7 78 16 138/86 (103) 95 Room Air 06/17/17 16:15 Room Air 06/17/17 14:57 36.8 63 18 138/88 (105) 97 Room Air 06/17/17 14:10 36.8 76 18 142/88 (106) 97 Room Air 06/17/17 13:56 36.7 68 18 96 06/17/17 12:07 96 Room Air 06/17/17 11:04 36.7 68 18 145/89 (107) 97 Room Air Physical Exam General Appearance: WD/WN, no apparent distress Eyes: bilateral eyes normal inspection, bilateral eyes PERRL ENT: normal ENT inspection, hearing grossly normal Neck: supple Respiratory/Chest: chest non-tender, lungs clear, normal breath sounds, no respiratory distress, no accessory muscle use Cardiovascular: regular rate, rhythm (distant), no edema Abdomen: normal bowel sounds, non tender, soft Extremities: normal range of motion, non-tender, no pedal edema Neurologic/Psychiatric: alert, normal mood/affect, oriented x 3 Skin: normal color, warm/dry, no rash Laboratory Results Last 24 Hours Test 06/18/17 04:44 06/18/17 06:31 White Blood Count 12.19 K/uL Red Blood Count 5.32 M/uL Hemoglobin 15.0 g/dL Hematocrit 44.9 % Mean Corpuscular Volume 84.4 fL Mean Corpuscular Hemoglobin 28.2 pg Mean Corpuscular Hemoglobin Concent 33.4 g/dl Platelet Count 289 K/uL Mean Platelet Volume 10.4 fL Neutrophils (%) (Auto) 72.0 % Lymphocytes (%) (Auto) 15.8 % Monocytes (%) (Auto) 8.0 % Eosinophils (%) (Auto) 2.9 % Basophils (%) (Auto) 0.2 % Neutrophils # (Auto) 8.78 K/uL Lymphocytes # (Auto) 1.92 K/uL Monocytes # (Auto) 0.98 K/uL Eosinophils # (Auto) 0.35 K/uL Basophils # (Auto) 0.03 K/uL RDW Standard Deviation 37.8 fL RDW Coefficient of Variation 12.4 % Immature Granulocyte % (Auto) 1.1 % Immature Granulocyte # (Auto) 0.13 K/uL Creatinine 0.96 mg/dl Est Creatinine Clear Calc Drug Dose 139.1 ml/min Estimated GFR () 120.7 Estimated GFR (Non- 104.2 Medications Medications Administered Medications (Trade) Dose Ordered Sig/Akhil Route Start Time Stop Time Status Last Admin Dose Admin Sodium Chloride 1,000 ml @ 999 mls/hr Q1H1M STAT IV 06/16/17 23:46 06/17/17 00:46 DC 06/17/17 00:10 999 MLS/HR Piperacillin Sod/ Tazobactam Sod (Zosyn Iv) 4.5 gm NOW STAT IV 06/16/17 23:46 06/16/17 23:48 DC 06/17/17 00:10 4.5 GM Piperacillin Sod/ Tazobactam Sod 3.375 gm/Dextrose 115 ml @ 28.75 mls/ hr Q8H IV 06/17/17 06:00 06/18/17 14:59 DC 06/18/17 05:52 28.75 MLS/HR Sodium Chloride 1,000 ml @ 150 mls/hr Q6H40M IV 06/17/17 00:30 06/17/17 12:27 DC 06/17/17 07:10 150 MLS/HR Assessment and Plan Assessment and Plan: Nate Brice is a 32 yo male with PMHx of diverticulitis, who presented to the ED with LLQ that radiated to L groin and associated nausea. CT of abdomen/ pelvis showed acute sigmoid diverticulitis with microperforation and moderate pericolonic inflammatory/phlegmonous changes. With treatment of piperacillin/ tazobactam, patient's symptoms have improved such that patient only complains of intermittent 1/10 pain when stooling. 1) Diverticulitis, recurrent - IV Piperacillin/Tazobactam in-patient will be switched to Augmentin 875- 125mg 1 tab PO BID for 7 days and Flagyl 500mg tab PO Q8H fo 7 days beginning . - Tolerated PO diet since last evening, will continue PO diet at discharge - Plan for follow-up PCP care with [facility] on Saturday ( 06/24) to reevaluate symptoms and finalize length of antibiotic treatment. PCP will work with GI to determine if patient requires work-up of potentially IBD (p -ANCA and ASCA diagnostic indicators would be ordered at that time) and/or screening colonoscopy. - Surgery follow-up in 3 months if PCP and GI follow-up care determine that surgery/collectomy is possible treatment option. Repeat WBC before discharge per surgery's request (12.28 yesterday, 12.19 today). - Plan for d/c home today on oral antibiotics (Augmentin and Flagyl) with follow -up out-patient on Saturday. 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 2) Elevated BP - Most likely secondary to situation, trending down (most recent BPs: 128/75, 138/86, and 120/79) Discharge planning: home
[2017-06-18 13:37] VITALS: BP 120/79; PULSE 78; TEMP 36.8; O2SAT 96
--- NOTE | 2017-06-18 14:00 | Discharge Instructions ---
Discharge Instructions Date of Service Jun 18, 2017. Admission Reason for Admission: Diverticulitis Of Intestine With Perforation Discharge Discharge Diagnosis / Problem: Diverticulitis with Microperforations Discharge Goals Goal(s): Decrease discomfort Activity Recommendations Activity Limitations: resume your previous activity . Instructions / Follow-Up Instructions / Follow-Up You presented to [facility] due to lack of improvement of your diverticulitis with outpatient management of oral antibiotics. During your time in the hospital, we treated you with IV antibiotics, specifically Zosyn, and gave your bowels a rest with a liquid diet. Because your symptoms have improved, we will be discharging you with two oral antibiotics to take for 1 week. Please follow up with Dr. Rosas on Saturday to determine that your diverticulitis is improving with the oral antibiotics, in which case we could stop them, or continue the course for longer if you feel you are not improving. We will also continue to follow up with you and work with the gastroenterology team to try and determine the cause of your recurrent diverticulitis, and to see whether there is any other underlying cause of your symptoms. You may need a follow up colonoscopy and a few blood tests. Current Hospital Diet Patient's current hospital diet: Low Fiber Diet Discharge Diet Recommended Diet: Low Fiber Diet Pending Studies Studies pending at discharge: no Medical Emergencies . Who to Call and When: Medical Emergencies: If at any time you feel your situation is an emergency, please call 911 immediately. . Non-Emergent Contact Non-Emergency issues call your: Primary Care Provider . . "Provider Documentation" section prepared by Lexx Power. . VTE Core Measure Inpt VTE Proph given/why not?: Isabel Boswell, EDDY's
[2017-06-18] MEDS ORDERED: AMOX500T PO (14:03)
[2017-06-18] MEDS ORDERED: METR-163 PO (14:03)
[2017-06-18] MEDS ORDERED: AMOX875T PO (14:42)
--- NOTE | 2017-06-18 17:42 | Discharge Summary ---
Discharge Summary Date of Service Jun 18, 2017. (Lexx Power M.D.) Discharge Summary Admission Date: Jun 17, 2017 at 00:33 Discharge Date: Jun 18, 2017 Discharge Disposition: Home Principal Diagnosis: Diverticulitis with Microperforations Immunizations: Have You Had Influenza Vaccine: No History of Tetanus Vaccine?: No History of Pneumococcal: No History of Hepatitis B Vaccine: No (Lexx Power M.D.) Medication Reconciliation New Medications: Amoxicillin & Pot Clavulanate (Augmentin 875-125 mg) 1 Tab Tab 1 TAB PO BID for 7 Days, #14 TAB Changed Medications: Metronidazole (Flagyl) 500 Mg Tab 500 MG PO Q8H for 7 Days (Changed from: Q6H) Discontinued Medications: Levofloxacin (Levofloxacin) 750 Mg Tab 750 MG PO DAILY for 7 Days Discharge Exam Mr. Brice is a 32 year old male who reports no new concerns today. He is tolerating his low fiber diet well, and has been having regular bowel movements. He denies any abdominal pain, fever, chills or diarrhea. He feels well and is happy to continue with oral antibiotics and follow up in the outpatient setting. Review of Systems: Constitutional: No fever, No chills, No sweats, No weight loss, No weakness Cardiovascular: No chest pain, No orthopnea, No PND Abdomen: No pain, No nausea, No vomiting, No diarrhea, No constipation Physical Exam: General Appearance: WD/WN, no apparent distress Respiratory/Chest: chest non-tender, lungs clear, normal breath sounds, no respiratory distress, no accessory muscle use Cardiovascular: regular rate, rhythm, no edema, no gallop, no JVD, no murmur , normal peripheral pulses Abdomen / GI: normal bowel sounds, non tender, soft, no organomegaly, no pulsatile mass (Lexx Power M.D.) Hospital Course Mr. Brice presented to [facility] with diverticulitis that was diagnosed 4 days previously at [facility] ER. He failed outpatient management consisting of levaquin and metronidazole, and return to a full diet. His LLQ and left groin pain did not improve, and therefore he presented to [facility] in [facility], where a repeat CT scan showed acute sigmoid diverticulitis with microperforation. He received ertapenem and 2L IV fluid bolus there and then drove to [facility], where we treated him with bowel rest, IV fluids and IV Zosyn. He improved with this treatment and was then able to tolerate a low fibre diet. He was discharged home on a course of augmentin and metronidazole and told to follow up with Dr. Rosas in clinic on Saturday (6 days from now) to determine if his diverticulitis has resolved, or will need a further course of antibiotics. He was also told to follow up with us in clinic as this is his second episode of diverticulitis in 5 years, and in the absence of impressionable diverticulum on CT & colonoscopy, other gastrointestinal causes for these symptoms should be ruled out, such as inflammatory bowel disease. Total Time Spent: Less than 30 minutes This includes examination of the patient, discharge planning, medication reconciliation, and communication with other providers. (Lexx Power M.D.) Resident Physician Supervision Note: I interviewed and examined the patient. Discussed with Dr. Power and agree with findings and plan as documented in the note. Any exceptions or clarifications are listed here: None Documented By: Bebeto Marsh feeling better walking the halls wants to go home. discussed abx. discussed further w/u as far as ?etiology of recurrent colitis episodes when it's not totally clear that he actually has (or doesn't hvae) diverticulosis - CT and colo conflicting vitals noted nad breathing unlabored walking vigorously colitis - presumed diverticulitis - improved, stable for home. PO abx, outpt f/ u and ongoing w/u as outpt (Bebeto Marsh, D.O.) Discharge Instructions Please refer to the electronic Patient Visit Report (Discharge Instructions) for additional information. (Lexx Power M.D.) Additional Copies To Katelyn Rosas MD; Lexx Power M.D. Resident Tracking Resident Involvement: Resident Care Provided Care Provided: Adult [facility] (Lexx Power M.D.)
[2017-08-13] MEDS ORDERED: PSYL48.59 PO (15:35)
== END 2017-06-18 14:58 | disposition home or self-care (01) | DRG 392 ==
LOC: C.EDB 23:19 → C.2T 06-17 00:33 → ENRESERV 06-17 00:46 → C.MSW 06-17 14:04
PROVIDERS: ADMIT Internal Medicine; ATTEND Family Medicine
DX: K57.20 Diverticulitis of large intestine with perforation and abscess without bleeding (principal); E66.3 Overweight; Z79.2 Long term (current) use of antibiotics; Z68.29 Body mass index [BMI] 29.0-29.9, adult

== ENCOUNTER → 2017-07-01 | Outpatient (CLI) | payer OTHER ==
[~2017-07-01] MED LIST changes: -LVQ750 PO; -OXYC1TAB3 PO; +PSYL48.59 PO
[2017-07-01 17:45] LABS: BASO % 0.2 %; BASO ABS # 0.03 K/uL (0-0.2); COMPLETE YES; HEMATOCRIT 44.6 % (42-52); IG% 0.4 %; LYMPH % 8.9 %; LYMPH ABS # 1.48 K/uL (1.2-3.4); MEAN CELL VOLUME 85.1 fL (80-100); MEAN CORPUSCULAR HEMOGLOBIN 28.2 pg (25-34); MEAN CORPUSCULAR HGB CONC 33.2 g/dl (32-36); MEAN PLATELET VOLUME 10.8 fL (7.4-10.4); MONO % 7.7 %; NEUT % 81.8 %; PLATELET COUNT 308 K/uL (130-400); RED BLOOD COUNT 5.24 M/uL (4.7-6.1)
== END | disposition home or self-care (01) ==
LOC: C.LAB1850 17:11
PROVIDERS: ATTEND Family Medicine
DX: K57.92 Diverticulitis of intestine, part unspecified, without perforation or abscess without bleeding (principal); R39.9 Unspecified symptoms and signs involving the genitourinary system

== ENCOUNTER → 2017-08-30 | Day surgery (SDC) | payer OTHER ==
[2017-08-13 15:36] VITALS: BMI 27.0
[~2017-08-30] VITALS: Ht 185.4 cm; Wt 95.5 kg
[~2017-08-30] MED LIST changes: +FENTANYL CITRATE INJ 50 MCG/1 ML 2 ML VIAL ONE; +LIDOCAINE HCL 2% 2 ML VIAL (20MG/ML) ONE; -METR-163 PO; +PROPOFOL IV EMULSION 10 MG/ML 20 ML VIAL IV ONE
[2017-08-30 08:21] VITALS: Ht 185.4 cm; Wt 95.5 kg
--- NOTE | 2017-08-30 08:37 | Endo History and Physical ---
History & Physical Date of Service: Aug 30, 2017. Chief Complaint: DIVERTICULITIS Referring Physician: [facility] History of Present Illness 32 yo CM who presents for colonoscopy secondary to diverticulitis. Past Surgical History Hx Cardiac Surgery: No Hx Internal Defibrillator: No Hx Pacemaker: No Hx Abdominal Surgery: No Hx of Implantable Prosthesis: No Hx Post-Op Nausea and Vomiting: No Hx Cancer Surgery: No Hx Thoracic Surgery: No Hx Orthopedic: Yes (RT KNEE X3) Hx Urinary Tract Surgery: No Family History None Social History Smoking Status: Never Smoker Hx Substance Use: No Hx Alcohol Use: No Allergies Coded Allergies: No Known Allergies (Verified , 08/13/17) Current Medications Reported Home Medications Medications Dose Route/Sig Max Daily Dose Days Date Category Metamucil (Psyllium) 48.57 % Pow 1 Dose PO BID 08/13/17 Reported Vital Signs Weight (Kilograms): 95.45 Height (Feet): 6 Height (Inches): 1 Date Time Temp Pulse Resp B/P (MAP) Pulse Ox O2 Delivery O2 Flow Rate FiO2 08/30/17 08:34 36.8 72 18 134/86 (102) 96 Room Air Physical Exam General Appearance: WD/WN, no apparent distress Respiratory/Chest: Auscultation: breath sounds normal Cardiovascular: Heart Auscultation: RRR Abdomen: Bowel Sounds: normal Inspection & Palpation: soft, non-distended, no tenderness, guarding & rebound Assessment and Plan Assessment: 32 yo CM who presents for colonoscopy secondary to diverticulitis. Plan: Proceed with colonoscopy.
--- NOTE | 2017-08-30 09:29 | Discharge Instructions ---
Endoscopy Patient Instructions Date / Procedure(s) Performed Aug 30, 2017. Colonoscopy Allergy Information Coded Allergies: No Known Allergies (Verified , 08/13/17) Discharge Date / Findings Aug 30, 2017. Diverticulosis Rectal polyp Medication Instructions OK to resume all medications today as prescribed Reported Home Medications Medications Dose Route/Sig Max Daily Dose Days Date Category Metamucil (Psyllium) 48.57 % Pow 1 Dose PO BID 08/13/17 Reported Provider Instructions Activity Restrictions - No exercising or heavy lifting for 24 hours. - Do not drink alcohol the day of the procedure. - Do not drive a car or operate machinery until the day after the procedure. - Do not make any important decisions or sign important papers in 24 hours after the procedure. Following Day: - Return to full activity which may include returning to work/school. Diet Start your diet with liquids and light foods (jello, soup, juice, toast). Then eat your usual diet if not nauseated. Treatment For Common After Affects For mild abdominal pain, bloating, or excessive gas: - Rest - Eat lightly - Lie on right side Follow-Up Information Follow-up with [facility] as scheduled Anesthesia Information What You Should Know You have had a procedure that required some medicine to reduce anxiety and discomfort. This treatment is called moderate sedation. After receiving the treatment, you may be sleepy, but you will be able to breathe on your own. The effects of the treatment may last for several hours. Follow these instructions along with Activity/Diet recommendations noted above: * Do NOT do anything where dizziness or clumsiness would be dangerous. * Rest quietly at home today, then you can be up and about tomorrow. * Have a responsible person stay with you the rest of today. * You may have had an I.V. today. If so, you may take the dressing off later today. Recommendations Call your doctor if: * Trouble breathing * Continuous vomiting for more than 24 hours * Temperature above 101 degrees * Severe abdominal pain or bloating * Pain not relieved by pain medicine ordered * There is increased drainage or redness from any incision * A large amount of rectal bleeding greater than 2-3 tablespoons. (If you had a polyp/s removed or have hemorrhoids, a small amount of blood - from the rectum is to be expected.) * You have any unanswered questions or concerns. IN THE EVENT OF A SERIOUS EMERGENCY, GO TO THE NEAREST EMERGENCY ROOM Your discharge instructions were prepared by provider Eliu Grey. Patient Instructions Signature Page Nate Babs Patient (or Guardian) Signature/Date: I have read and understand the instructions given to me by my caregivers. Caregiver/RN/Doctor Signature/Date: The above-named patient and/or guardian has received patient instructions on this date. + Original Patient Signature Page (only) stays with chart. Please make copy for patient.
--- NOTE | 2017-08-30 09:32 | GI REPORT ---
Procedure Date: 08/30/2017 9:04 AM Procedure: Colonoscopy Indications: Follow-up of diverticulitis Medicines: Monitored Anesthesia Care Complications: No immediate complications. Estimated Blood Loss: Estimated blood loss: none. Procedure: Pre-Anesthesia Assessment: - Prior to the procedure, a History and Physical was performed, and patient medications and allergies were reviewed. The patient's tolerance of previous anesthesia was also reviewed. The risks and benefits of the procedure and the sedation options and risks were discussed with the patient. All questions were answered, and informed consent was obtained. Prior Anticoagulants: The patient has taken no previous anticoagulant or antiplatelet agents. ASA Grade Assessment: II - A patient with mild systemic disease. After reviewing the risks and benefits, the patient was deemed in satisfactory condition to undergo the procedure. After I obtained informed consent, the scope was passed under direct vision. Throughout the procedure, the patient's blood pressure, pulse, and oxygen saturations were monitored continuously. The scope was introduced through the anus and advanced to the terminal ileum. The colonoscopy was performed without difficulty. The patient tolerated the procedure well. The quality of the bowel preparation was good. The terminal ileum, ileocecal valve, appendiceal orifice, and rectum were photographed. Findings: Multiple small-mouthed diverticula were found in the sigmoid colon. A 3 mm polyp was found in the rectum. The polyp was sessile. The polyp was removed with a cold biopsy forceps. Resection and retrieval were complete. Impression: - Diverticulosis in the sigmoid colon. - One 3 mm polyp in the rectum, removed with a cold biopsy forceps. Resected and retrieved. Recommendation: - Repeat colonoscopy for surveillance based on pathology results. - Return to primary care physician as previously scheduled. - Resume previous diet. - Continue present medications. Eliu Grey DO 08/30/2017 9:31:50 AM This report has been signed electronically. Note Initiated On: 08/30/2017 9:04 AM I attest to the content of the Intraoperative Record and orders documented therein, exceptions below
--- NOTE | 2017-08-30 09:45 | Anesthesiology Progress Note ---
Anesthesia Post Op Note Date & Time Aug 30, 2017 at 09:45 Vital Signs Pain Intensity: 0 Vital Signs Past 12 Hours Date Time Temp Pulse Resp B/P (MAP) Pulse Ox O2 Delivery O2 Flow Rate FiO2 08/30/17 09:42 69 16 126/95 (105) 97 Room Air 08/30/17 09:27 68 16 121/78 (92) 96 Room Air 08/30/17 08:34 36.8 72 18 134/86 (102) 96 Room Air Notes Mental Status: alert / awake / arousable, participated in evaluation Pt Amnestic to Procedure: Yes Nausea / Vomiting: adequately controlled Pain: adequately controlled Airway Patency, RR, SpO2: stable & adequate BP & HR: stable & adequate Hydration State: stable & adequate Anesthetic Complications: no major complications apparent
[2017-08-30 09:57] VITALS: BP 120/88; PULSE 70; O2SAT 98
== END | disposition home or self-care (01) ==
LOC: C.GI 08:07
PROVIDERS: ATTEND Internal Medicine
DX: Z09 Encounter for follow-up examination after completed treatment for conditions other than malignant neoplasm (principal); K57.30 Diverticulosis of large intestine without perforation or abscess without bleeding; K62.1 Rectal polyp; Z98.890 Other specified postprocedural states; Z68.27 Body mass index [BMI] 27.0-27.9, adult; Z98.818 Other dental procedure status

== ENCOUNTER 2021-07-31 13:20 | Inpatient (IN) ==
[2021-07-31] MEDS ORDERED: ALBUT/IPRATROP 3MG/0.5MG NEB 3 ML VIAL INH STA (14:43)
[2021-07-31] MEDS ORDERED: SODIUM CHLORIDE 0.9% 1000ML 500 ML IV ONE (14:43)
[2021-07-31] MEDS ORDERED: dexAMETHasone**PF** 10 MG/ML VIAL IV ONE (14:43)
--- NOTE | 2021-07-31 14:56 | Emergency Department Note ---
Impression & Plan Hypoxia, Pneumonia, Failure of outpatient treatment, COVID-19 ED Provider Note NAME: MANUEL SHELTON AGE: 36 SEX: M : 1985 ARRIVES VIA: Walk-In INFORMANT: [Patient] ED PROVIDER(S): [Miles Urbina MD] CHIEF COMPLAINT: Short of breath HISTORY OF PRESENT ILLNESS: The patient is a 36-year-old male who presents to the ER for shortness of breath. He was in the ED last night and seen by me. He was diagnosed with Covid pneumonia. He was not hypoxic and was felt stable for discharge. He was given a home pulse ox meter. Today, his O2 saturation was 79% when he was walking and in the mid 80s when he was resting. He was more short of breath so he presents back for evaluation. Patient has been sick for around 10 days now. He was using steroids and Tessalon through his family doctor's office. Yesterday, he was prescribed an albuterol inhaler and doxycycline. The patient is not vaccinated against COVID-19. Covid test yesterday was positive. Chest film showed a bilateral Covid pneumonia. Lab work was essentially unrevealing with the exception of some slight liver enzyme elevation. REVIEW OF SYSTEMS: See HPI for pertinent positives and negatives. A total of ten systems were reviewed and were otherwise negative. PMHx/PSHx: See Below SOCIAL HISTORY: See Below. PHYSICAL EXAM: GENERAL: Patient is in no acute distress but he is on oxygen HEENT: No acute trauma, normocephalic atraumatic, mucous membranes moist, no nasal congestion, no scleral icterus. NECK: No stridor, no adenopathy, no meningismus, trachea is midline. LUNGS: Increased respiratory rate, no apparent respiratory distress at the present, however, the patient is on nasal cannula oxygen. Crackles bilaterally. Dry cough noted. No wheezing. HEART: Without murmurs gallops or rubs, regular rate and rhythm. ABDOMEN: Soft, nontender, bowel sounds positive, no hernias, no peritonitis. EXTREMITIES: No cyanosis or edema, full range of motion of all the joints without pain or difficulty, no signs for acute trauma. NEUROLOGIC: Oriented x 3, no acute motor or sensory deficits, no focal weakness. SKIN: No rash, no jaundice, no diaphoresis. DIFFERENTIAL DIAGNOSIS: Reactive airway disease, pneumonia, pneumothorax, COPD, COVID-19, hypoxia, CHF, infection, cardiac ischemia, pulmonary embolism, bronchitis, musculoskeletal, gastrointestinal, as well as other pathologies. EMERGENCY DEPARTMENT COURSE/PROCEDURES: ECG: Indication was shortness of breath. The ECG shows a normal sinus rhythm with a rate of 85. There is no ST elevation, no PVCs. The QTc is 445. Continuous Cardiac Monitoring: An order was placed for continuous cardiac monitoring. The monitor shows a rate of 97 with normal sinus rhythm. Critical Care Note: I have personally spent 39 minutes of critical care time in the direct management of this patient. This includes bedside care, interpretati on of diagnostic studies, and testing, discussion with consultants, patient, and family members, and other required patient management activities. This 39 minutes is in excess of all separately billable procedures. MEDICAL DECISION MAKING: There is no leukocytosis or concerning anemia. There is a normal platelet count. No significant electrolyte abnormality or kidney failure. There were a few subtle liver enzyme elevations, the bilirubin though was normal. ECG shows a normal sinus rhythm, no acute ischemia. Cardiac enzyme testing x1 is not consistent with acute cardiac injury. Chest film shows a bilateral pneumonia consistent with Covid pneumonia. On exam, the patient was hypoxic without O2 supplementation. He had crackles noted bilaterally. The patient received IV saline, 500 cc. He was given IV Decadron. He received a DuoNeb. He was maintained on nasal cannula O2. The patient has Covid pneumonia. He was here yesterday but today, is hypoxic. A hospital stay is warranted. I spoke to the patient and caser up. The on-call hospitalist was consulted. Past Med/Surg History Medical History Bacteroides infection Diverticulitis of intestine with perforation without abscess Escherichia coli infection Surgical History H/O colonoscopy H/O elbow surgery RIGHT X 2 (2/2 FRACTURE) H/O wisdom tooth extraction History of colostomy reversal History of knee surgery RIGHT X 3 History of partial colectomy SIGMOID RESECTION WITH COLOSTOMY 2/2 DIVERTICULITIS= 08/08/18= GRADE 1 VIEW, RATLIFF 2, ETT 8.0 AT [facility] Hx of myringotomy X2 ( CHILD) Family History Father Myocardial infarction Other Diabetes No pertinent family history Denies family history of Ovarian cancer Prostate cancer Breast cancer Colorectal cancer Social History Smoking Status: Never smoker Second Hand Exposure: No; Hx Alcohol Use: No Hx Substance Use: No Preferred Language: Khmer Communication Ability: Effective Visual Impairment: No Limitations Snow Removal/Plowing Required: No Beliefs That Will Affect Care: None marital status: Current Living Situation: Spouse current occupational status: employed Other Information That Helps Us Care for You: No Feels Safe at Home: Yes Safety Concerns: Feels Safe At This Time Dental Care, Regularly: Yes Seatbelt Use: always Sunscreen Use: No Assistive Devices: Oxygen - Continuous Allergies Allergies Allergy/AdvReac Type Severity Reaction Status Date / Time azithromycin [From Zithromax] AdvReac Mild Nausea Verified 07/31/21 14:55 Home Meds Home Medications Medication Instructions Recorded Confirmed [id number] 250 2 tab PO Q6H PRN 10/21/18 07/31/21 mg-250 mg-65 mg tablet (Excedrin Migraine) ibuprofen 200 mg tablet 400 mg PO QID PRN 10/21/18 07/31/21 Previous Rx's Medication Instructions Recorded benzonatate 100 mg capsule 100 mg PO TID PRN #30 cap 07/28/21 (Tessallissa Billings) prednisone 20 mg tablet 20 mg PO .COMPLEX #18 tab 07/28/21 albuterol sulfate 90 mcg/actuation 3 inh INHALATION Q6H #18 g 07/30/21 aerosol inhaler doxycycline hyclate 100 mg tablet 100 mg PO BID 7 Days #14 tab 07/30/21 Results & Data (ED) Vital Signs Vital Signs - 24 hr 07/31/21 14:32 Temperature 37 C Temperature Source Temporal Artery Scan Pulse Rate 92 H Pulse Rhythm Regular Pulse Strength Normal Respiratory Rate 22 Respiratory Effort / Characteristics Non-Labored Spontaneous Respiratory Depth Normal Respiratory Pattern Regular Blood Pressure 136/85 Blood Pressure Mean 102 Blood Pressure Position Sitting Pulse Oximetry 89 L Oxygen Delivery Method Room Air Sepsis Recent Fever Within 48 Hours No Sepsis New/Unexplained Change in Mental Status No Sepsis Action Taken by Nursing No Action Required Home Medications Current Medication List: was personally reviewed by me Laboratory Data Attestation: I reviewed the patient's lab results. Result diagrams: 07/31/21 15:19 07/31/21 15:19 Administered Medications Discontinued Medications Albuterol (Albut/Ipratrop 3mg/0.5mg Neb 3 Ml Vial) 3 ml INH NOW STA Stop: 07/31/21 14:44 Last Admin: 07/31/21 15:24 Dose: 3 ml Documented by: [id number] Dexamethasone Sodium Phosphate (DexamethasonePf 10 Mg/Ml Vial) 6 mg IV NOW ONE Stop: 07/31/21 14:44 Last Admin: 07/31/21 15:15 Dose: 6 mg Documented by: [id number] Sodium Chloride (Nss 1000ml) 500 mls @ 999 mls/hr IV .Q31M ONE Stop: 07/31/21 15:13 Last Infusion: 07/31/21 16:00 Dose: 0 mls/hr Documented by: [id number] Admin: 07/31/21 15:15 Dose: 999 mls/hr Documented by: [id number] Imaging Data Radiologist's Impression: Chest X-Ray 07/31/21 14:43 SINGLE VIEW CHEST CLINICAL HISTORY: Dyspnea. Covid pneumonia. FINDINGS: An AP, portable, upright chest radiograph is compared to study dated 07/30/2021. The cardiomediastinal silhouette is unremarkable. Multifocal airspace consolidation is again seen throughout both lungs with a lower lobe predominance. No large pleural effusion or pneumothorax is identified. The bony thorax is grossly intact. IMPRESSION: Multifocal airspace consolidation is unchanged from yesterday and consistent with the reported history of viral pneumonia. Radiographic follow-up to resolution is recommended. ACT 112: Negative or not required by law. Electronically signed by: Miles Aguirre M.D. 07/31/2021 3:59 PM Discharge Plan Visit Data Chief Complaint: Illness Stated Complaint: COVID POSITIVE/SOB WAS HERE LAST NIGHT ED Provider: Miles Urbina Discharge Problem: Hypoxia, Pneumonia, Failure of outpatient treatment, COVID-19 Patient Disposition: Admitted As Inpatient Condition: Fair Discharge Instructions Interventions: ED Discharge Assessment Last Done: 07/31/21 16:24
--- NOTE | 2021-07-31 15:25 | History & Physical Report ---
Date of Service July 31, 2021 Assessment & Plan (1) COVID-19: Plan: Patient is being admitted with COVID 19. Patient will be placed on dexamethasone 6mg IV Given that patient is 10 days out from having symptoms, no remedesevir will be ordered. will recommend that patient prones daily. Continue nasal cannula and titrate oxygen to >90% will closely monitor. Procl is negative. will hold antibiotics repeat chest x ray in AM dvt: lovenox q12h. History of Present Illness Chief Complaint: covid infection Primary Care Provider: DOMITILA Magallon This is a pleasant 56 yo male who presents to the hospital for worsening COVID 19 infection. Patient reports that 10 days ago he had a headache. This was followed by a fever last Saturday (8 days ago), which then followed with a non productive cough the following day. Then during this past week, patient noticed that he was short of breath on exertion. Over the course of his illness, his SOB WORSENED. Patient was seen in The ER yesterday but was not hypoxic and was on oral prednisone and doxycycline. Patient was also given a home pulse ox. Allergies Allergy/AdvReac Type Severity Reaction Status Date / Time azithromycin [From Zithromax] AdvReac Mild Nausea Verified 07/31/21 14:55 Home Medications Medication Instructions Recorded Confirmed Type loejxqq-rnjlvcrprxpua-jbuicfon 250 2 tab PO Q6H PRN 10/21/18 07/31/21 History mg-250 mg-65 mg tablet (Excedrin Migraine) ibuprofen 200 mg tablet 400 mg PO QID PRN 10/21/18 07/31/21 History benzonatate 100 mg capsule 100 mg PO TID PRN #30 cap 07/28/21 07/31/21 Rx (Abisai Billings) prednisone 20 mg tablet 20 mg PO .COMPLEX #18 tab 07/28/21 07/31/21 Rx albuterol sulfate 90 mcg/actuation 3 inh INHALATION Q6H #18 g 07/30/21 07/31/21 Rx aerosol inhaler doxycycline hyclate 100 mg tablet 100 mg PO BID 7 Days #14 tab 07/30/21 07/31/21 Rx Past Med/Surg History Medical History Bacteroides infection Diverticulitis of intestine with perforation without abscess Escherichia coli infection Surgical History H/O colonoscopy H/O elbow surgery RIGHT X 2 (2/2 FRACTURE) H/O wisdom tooth extraction History of colostomy reversal History of knee surgery RIGHT X 3 History of partial colectomy SIGMOID RESECTION WITH COLOSTOMY 2/2 DIVERTICULITIS= 08/08/18= GRADE 1 VIEW, RATLIFF 2, ETT 8.0 AT [facility] Hx of myringotomy X2 ( CHILD) Family History Father Myocardial infarction Other Diabetes No pertinent family history Denies family history of Ovarian cancer Prostate cancer Breast cancer Colorectal cancer Social History Smoking Status: Never smoker Second Hand Exposure: No; Hx Alcohol Use: No Hx Substance Use: No Preferred Language: Estonian Communication Ability: Effective Visual Impairment: No Limitations Office Services Specialist Required: No Beliefs That Will Affect Care: None marital status: Current Living Situation: Spouse current occupational status: employed Other Information That Helps Us Care for You: No Feels Safe at Home: Yes Safety Concerns: Feels Safe At This Time Dental Care, Regularly: Yes Seatbelt Use: always Sunscreen Use: No Assistive Devices: None Review of Systems Review of Systems: Other Constitutional: + fever and + sweats Eyes: no blind spots and no diplopia Ear, Nose, Mouth, Throat: no ear pain and no tinnitus Respiratory: + cough and + dyspnea Cardiovascular: no chest pain and no chest pain with activity Gastrointestinal: no abdominal pain and no bloating Genitourinary: no dysuria or no urinary frequency Musculoskeletal: no back pain Integumentary: no acne Neurologic: no gait abnormality and no falls Psychiatric: no behavioral changes and no hopelessness Endocrine: no fatigue and no polydipsia Hematologic / Lymphatic: no easy bleeding Allergy / Immunological: no lip swelling Physical Exam Constitutional: WD/WN, vitals as above Eyes: PERRL, conjunctivae normal, anicteric sclerae ENMT: external ear and nose normal, oropharynx normal Neck: trachea midline, no thyromegaly Respiratory: no respiratory distress and no labored breathing Auscultation: + rales Cardiovascular: RRR, no murmur, no edema Gastrointestinal (Abdomen): normal bowel sounds, soft, nontender, no hepatosplenomegaly Musculoskeletal: no cyanosis or clubbing, extremities motor strength 5/5 Skin: no rashes, warm and dry Neurologic: PERRL, EOMI, accommodation nl, no face palsy, no dysarthria Psychiatric: A+Ox3, euthymic affect Lymphatic: no cervical or axillary lymphadenopathy Results & Data Results & Data ([facility]) Vital Signs (Past 12 Hours) Vital Signs Temp Pulse Pulse Resp BP BP Pulse Ox 07/31/21 15:18 97 H 23 93 07/31/21 15:17 97 H 23 140/79 94 07/31/21 15:16 93 07/31/21 14:32 37 C 92 H 22 136/85 89 L PG Care Time/CCT Total # of Minutes Spent Total Time Spent with Patient: Total time spent is greater than 50% in coordination of care (as documented) at patient's floor/unit and/or counseling patient: Coding Level of Care Code 48434 Initial Inpt Care Lvl 3 Diagnoses COVID-19 U07.1 Time Spent (min) 50
[2021-07-31 15:30] LABS: Basophils # (auto) 0.01 K/uL (0-0.2); Basophils % (auto) 0.1 %; Hematocrit (blood only) 46.9 % (42-52); Hemoglobin 15.8 g/dL (14.0-18.0); Immature Granulocytes # (auto) 0.05 K/uL (0.00-0.02); Immature Granulocytes % (auto) 0.6 %; Lymphocytes # (auto) 0.56 K/uL (1.2-3.4); Lymphocytes % (auto) 7.3 %; Mean Corpuscular Hemoglobin 29.2 pg (25-34); Mean Corpuscular Hgb Conc 33.7 g/dL (32-36); Mean Corpuscular Volume 86.7 fL (80-100); Mean Platelet Volume 10.7 fL (7.4-10.4); Monocytes % (auto) 9.1 %; Neutrophils # (auto) 6.39 K/uL (1.4-6.5); Neutrophils % (auto) 82.9 %; Platelet Count 231 K/uL (130-400); RDW Standard Deviation 41.2 fL (36.4-46.3); Red Blood Count 5.41 M/uL (4.7-6.1); White Blood Count 7.71 K/uL (4.8-10.8)
--- NOTE | 2021-07-31 16:00 | XRay Report ---
SINGLE VIEW CHEST CLINICAL HISTORY: Dyspnea. Covid pneumonia. FINDINGS: An AP, portable, upright chest radiograph is compared to study dated 07/30/2021. The cardiome diastinal silhouette is unremarkable. Multifocal airspace consolidation is again seen throughout both lungs with a lower lobe predominance. No large pleural effusion or pneumothorax is identified. The b shahla thorax is grossly intact. IMPRESSION: Multifocal airspace consolidation is unchanged from yesterday and consistent with the rep orted history of viral pneumonia. Radiographic follow-up to resolution is recommended. ACT 112: Negative or not required by law. Electronically signed by: Miles Aguirre M.D. 07/31/2021 3:59 PM
[2021-07-31 16:17] LABS: Alanine Aminotransferase 164 U/L (12-78); Albumin Globulin Ratio 0.9 (0.9-2); Albumin Level 3.3 gm/dl (3.4-5.0); Alkaline Phosphatase 93 U/L (45-117); Aspartate Aminotransferase 93 U/L (15-37); BUN Creatinine Ratio 18.9 (10-20); Bilirubin,Total 0.6 mg/dl (0.2-1); Blood Urea Nitrogen 17 mg/dl (7-18); C Reactive Protein 2.39 mg/dl (0-0.29); Calcium 9.2 mg/dl (8.5-10.1); Carbon Dioxide 27 mmol/L (21-32); Chloride 105 mmol/L (98-107); Creatinine Clr Calc Pharmacy 141.3 ml/min; Est GFR (African American) 125.2 ml/min; Globulin 3.8 gm/dl (2.5-4.0); Glucose 132 mg/dl (70-99); NT Pro B Type Natriuretic Pept 48 pg/ml (0-450); Potassium 4.4 mmol/L (3.5-5.1); Sodium 139 mmol/L (136-145); Total Protein 7.1 gm/dl (6.4-8.2); Troponin I < 0.015 ng/ml (0-0.045)
[2021-07-31] MEDS ORDERED: BENZONATATE 100 MG CAPSULE PO PRN (16:46)
[2021-07-31] MEDS: ENOXAPARIN INJ 40 MG/0.4 ML SYR SQ SCH (23:32)
[2021-08-01] MEDS ORDERED: COUGH DROP (SUGAR FREE) LOZ 24 LOZ/1 BOX BUCCAL ONE (04:41)
[2021-08-01 06:55] LABS: D Dimer 290 ug/L FEU (0-500)
--- NOTE | 2021-08-01 08:29 | Electrocardiogram Report ---
Test Reason : Blood Pressure : / mmHG Vent. Rate : 085 BPM Atrial Rate : 085 BPM P-R Int : 132 ms QRS Dur : 090 ms QT Int : 374 ms P-R-T Axes : 063 053 051 degrees QTc Int : 445 ms Normal sinus rhythm Normal ECG No previous ECGs available Confirmed by Alireza Barboza ([id number]) on 08/01/2021 8:28:52 AM Referred By: REFERRED SELF Confirmed By:Alireza Barboza
[2021-08-01] MEDS: CALCIUM CARBONATE 500 MG CHEWABLE TAB PO PRN (09:10)
[2021-08-01] MEDS: PANTOprazole 40 MG TAB PO SCH (09:10)
[2021-08-01] MEDS: ENOXAPARIN INJ 40 MG/0.4 ML SYR SQ SCH ×2 (11:25→21:40)
[2021-08-01] MEDS ORDERED: FAMOTIDINE 20 MG in SYRINGE 3 ML IV ONE (12:00)
[2021-08-01] MEDS ORDERED: SODIUM CHLORIDE 0.65% NA SOLN 45 ML (OCEAN) PRN (12:56)
[2021-08-01] MEDS ORDERED: OXYMETAZOLINE 0.05% 30 ML BTL PRN (12:56)
[2021-08-01] MEDS: dexAMETHasone 6 MG in SYRINGE 0 ML IV SCH (14:08)
[2021-08-01] MEDS ORDERED: busPIRone 5 MG TAB PO PRN (14:44)
[2021-08-01] MEDS ORDERED: ALBUTEROL HFA 8 GM INHALER INH PRN (14:44)
[2021-08-01] MEDS ORDERED: ALBUTEROL HFA 8 GM INHALER INH ONE (14:44)
--- NOTE | 2021-08-01 20:57 | Hospitalist Progress Note ---
Date of Service August 01, 2021 Assessment & Plan (1) Acute respiratory failure with hypoxia: Plan: 2nd COVID-19 pneumonia. NC O2. Supportive care. Rx per #2 below. Needs aggressive pulmonary toilet & proning - both encouraged. (2) Pneumonia due to COVID-19 virus: Plan: mod-severe disease - at risk of worsening/progression. cont IV dexamethasone - day #2 today. add albuterol 2 puffs prn. add afrin nasal spray prn for nasal congestion. ordered flutter valve. cont flutter & incentive. proning discussed and encouraged. cont lovenox 40mg BID for DVT proph. treat anxiety with buspar prn. (3) Anxiety: Plan: buspar prn (4) Heartburn: Plan: protonix 40mg daily tums prn one-time dose of pepcid given today for refractory symptoms (5) DVT prophylaxis: Plan: lovenox 40mg BID Plan: extensively updated by phone she, too, has COVID and is recovering at home Admission and Anticipated Discharge Date Admission Date: July 31, 2021 Subjective patient feels very poorly. can't get comfortable in the bed due to his breathing. with any movement he immediately has significant dyspnea. has tried proning but can't get comfortable with such. any pulmonary toilet causes cough and more chest symptoms. he admits to feeling anxious. appetite is poor. having sweats. c/o nasal congestion. had heartburn earlier today - finally stopped s/p protonix, then tums, then pepcid IV x 1. slept very poorly last night. Review of Systems Constitutional: + fever, + chills, + body aches, + fatigue, + malaise, + weakness and + anorexia Respiratory: + wheezing; no hemoptysis Cardiovascular: + chest pain (tightness ); no orthopnea Gastrointestinal: no abdominal pain, no nausea and no vomiting Physical Exam Physical Exam: gen - looks sick, looks uncomfortable, diaphoretic; gets dyspneic with moving in bed mouth - MM pasty neck - no JVD heart - RRR, s1s2, no murmur lungs - fine rales both bases, decreased BS bases, poor air movement throughout; scant end-exp wheeze scattered abd - soft NT ND BS+ ext - no edema psych - anxious Results & Data Results & Data ([facility]) Vital Signs (Past 12 Hours) Vital Signs Temp Pulse Resp BP Pulse Ox 08/01/21 16:20 36.6 C 85 19 137/87 95 08/01/21 15:47 78 22 95 Laboratory Results Laboratory Results - last 24 hr 08/01/21 05:27 D-Dimer 290 PG Care Time/CCT Total # of Minutes Spent Total Time Spent with Patient: Total time spent is greater than 50% in coordination of care (as documented) at patient's floor/unit and/or counseling patient: Coding Level of Care Code 83222 Subseq Hosp Care Lvl 2 Diagnoses Acute respiratory failure with hypoxia J96.01 Pneumonia due to COVID-19 virus U07.1; J12.82 Anxiety F41.9 DVT prophylaxis Z29.9 Heartburn R12
[2021-08-01] MEDS: MELATONIN 3 MG TAB PO PRN (21:40)
[2021-08-02 06:55] LABS: BUN Creatinine Ratio 22.4 (10-20); Calcium 8.9 mg/dl (8.5-10.1); Creatinine Clr Calc Pharmacy 146.3 ml/min; Est GFR (African American) 128.7 ml/min; Potassium 4.3 mmol/L (3.5-5.1)
[2021-08-02] MEDS: PANTOprazole 40 MG TAB PO SCH (09:43)
[2021-08-02] MEDS: CALCIUM CARBONATE 500 MG CHEWABLE TAB PO PRN (09:45)
[2021-08-02] MEDS ORDERED: ACETAMINOPHEN 500 MG TAB PO PRN (12:38)
--- NOTE | 2021-08-02 12:39 | Hospitalist Progress Note ---
Date of Service August 02, 2021 Assessment & Plan (1) Acute respiratory failure with hypoxia: Plan: 2nd COVID-19 pneumonia. IMPROVING. Cont NC O2 - wean as tolerated. Supportive care. Rx per #2 below. Cont aggressive pulmonary toilet & proning - both encouraged. (2) Pneumonia due to COVID-19 virus: Plan: mod-severe disease but mildly improved today. cont IV dexamethasone - day #3 today. cont albuterol 2 puffs prn. cont flutter & incentive. cont proning. cont lovenox 40mg BID for DVT proph. treat anxiety with buspar prn. (3) Anxiety: Plan: buspar prn (4) Heartburn: Plan: protonix 40mg daily tums prn (5) DVT prophylaxis: Plan: lovenox 40mg BID Plan: extensively updated by phone again today she, too, has COVID and is recovering at home but improving Admission and Anticipated Discharge Date Admission Date: July 31, 2021 Subjective patient feeling significantly better today able to take larger breaths a little better energy and appetite still not sleeping well due to difficulty finding a comfortable position trying to prone and trying to do incentive, etc still coughing but not any worse than yesterday Review of Systems Review of Systems: gen - no fevers or chills neuro - some intermittent headache CV - no chest pain Pulm - no wheeze GI - no nausea, no emesis Physical Exam Physical Exam: gen - looks better today; sitting in chair; no increased work of breathing mouth - MM more moist today neck - no JVD heart - RRR, s1s2, no murmur lungs - fine rales both bases, airation today MUCH improved; no wheezes abd - soft NT ND BS+ ext - no edema, pulses 2+ b/l psych - less anxious today skin - face is flushed Results & Data Results & Data ([facility]) Vital Signs (Past 12 Hours) Vital Signs Temp Pulse Resp BP Pulse Ox 08/02/21 07:28 36.5 C 82 18 131/76 93 PG Care Time/CCT Total # of Minutes Spent Total Time Spent with Patient: Total time spent is greater than 50% in coordination of care (as documented) at patient's floor/unit and/or counseling patient: Coding Level of Care Code 36327 Subseq Hosp Care Lvl 2 Diagnoses Acute respiratory failure with hypoxia J96.01 Pneumonia due to COVID-19 virus U07.1; J12.82 Anxiety F41.9 Heartburn R12 DVT prophylaxis Z29.9
[2021-08-02] MEDS: ENOXAPARIN INJ 40 MG/0.4 ML SYR SQ SCH ×2 (12:50→22:40)
[2021-08-02] MEDS: dexAMETHasone 6 MG in SYRINGE 0 ML IV SCH (12:50)
[2021-08-02] MEDS: MELATONIN 3 MG TAB PO PRN (22:41)
[2021-08-02] MEDS: ALPRAZolam 0.25 MG TABLET PO SCH (22:44)
[2021-08-03 07:41] LABS: Basophils # (auto) 0.02 K/uL (0-0.2); Basophils % (auto) 0.2 %; Eosinophils # (auto) 0.01 K/uL (0-0.5); Eosinophils % (auto) 0.1 %; Hematocrit (blood only) 46.1 % (42-52); Hemoglobin 15.7 g/dL (14.0-18.0); Immature Granulocytes # (auto) 0.24 K/uL (0.00-0.02); Lymphocytes # (auto) 1.43 K/uL (1.2-3.4); Mean Corpuscular Hemoglobin 29.2 pg (25-34); Mean Corpuscular Hgb Conc 34.1 g/dL (32-36); Mean Corpuscular Volume 85.8 fL (80-100); Monocytes # (auto) 1.19 K/uL (0.11-0.59); Neutrophils # (auto) 8.98 K/uL (1.4-6.5); Neutrophils % (auto) 75.7 %; Platelet Count 271 K/uL (130-400); RDW Coefficient of Variation 12.7 % (11.5-14.5); RDW Standard Deviation 40.3 fL (36.4-46.3); Red Blood Count 5.37 M/uL (4.7-6.1); White Blood Count 11.87 K/uL (4.8-10.8)
[2021-08-03 08:09] LABS: Creatinine Clr Calc Pharmacy 163.2 ml/min; Est GFR (African American) 134.6 ml/min; Est GFR (Non-African American) 116.1 ml/min
[2021-08-03] MEDS: PANTOprazole 40 MG TAB PO SCH (08:13)
[2021-08-03] MEDS ORDERED: KETOROLAC 30 MG/ML VIAL IV ONE (08:24)
[2021-08-03] MEDS: ENOXAPARIN INJ 40 MG/0.4 ML SYR SQ SCH ×2 (12:25→21:12)
[2021-08-03] MEDS: dexAMETHasone 6 MG in SYRINGE 0 ML IV SCH (13:50)
--- NOTE | 2021-08-03 18:31 | Electrocardiogram Report ---
Test Reason : Blood Pressure : / mmHG Vent. Rate : 054 BPM Atrial Rate : 054 BPM P-R Int : 124 ms QRS Dur : 100 ms QT Int : 434 ms P-R-T Axes : 050 042 045 degrees QTc Int : 411 ms Sinus bradycardia Minimal voltage criteria for LVH, may be normal variant Borderline ECG When compared with ECG of 31-JUL-2021 14:57, Vent. rate has decreased BY 31 BPM Nonspecific T wave abnormality no longer evident in Anterior leads Confirmed by Elliot Murrieta ([id number]) on 08/03/2021 6:31:12 PM Referred By: REFERRED SELF Confirmed By:Nba Murrieta
[2021-08-03] MEDS: MELATONIN 3 MG TAB PO PRN (21:11)
[2021-08-03] MEDS: ALPRAZolam 0.25 MG TABLET PO SCH (21:11)
--- NOTE | 2021-08-03 21:23 | Hospitalist Progress Note ---
Date of Service August 03, 2021 Assessment & Plan (1) Acute respiratory failure with hypoxia: Plan: 2nd COVID-19 pneumonia. IMPROVING/resolving. Sats borderline low with walking (hit 88% this afternoon). Cont aggressive pulm toilet; recheck sats w/ walking in am prior to suspected discharge. (2) Pneumonia due to COVID-19 virus: Plan: mod disease but significantly improved. see above in #1. cont IV dexamethasone - day #4 today. cont albuterol 2 puffs prn. cont flutter & incentive. cont proning. cont lovenox 40mg BID for DVT proph. treat anxiety with buspar prn. (3) Anxiety: Plan: buspar prn (4) Heartburn: Plan: protonix 40mg daily tums prn (5) DVT prophylaxis: Plan: lovenox 40mg BID (6) Transaminitis: Plan: 2nd to COVID-19 infection slowly improving repeat ast/alt in am (7) Chest pain: Plan: resolved w/ NSAIDs EKG this am with fairly diffuse j-point elevation could be early repol, but need to observe carefully for pericarditis repeat crp am repeat EKG in am watch for recurrent symptoms cont steroids Plan: extensively updated by phone again today hoping for d/c tomorrow Admission and Anticipated Discharge Date Admission Date: July 31, 2021 Subjective patient had had chest discomfort - right upper chest - early this am toradol given, buspar given (for anxiety) pain resolved with toradol he has been walking the hallways today with no dyspnea feels MUCH better today coughing still but it is less slept better last pm with xanax did need O2 through the night, but was weaned off this am and sats at rest have been low 90s with walking sats drop to 88% Review of Systems Review of Systems: gen - no fevers or chills; eating better; more energy CV - no chest pain this am, mildly pleuritic Pulm - cough, no dyspnea GI - heartburn resolved Physical Exam Physical Exam: gen - looks much better today; sitting in chair; no increased work of breathing mouth - MMM neck - no JVD heart - RRR, s1s2, no murmur lungs - CTA b/l, scant scattered rales b/l, airation bases improved abd - soft NT ND BS+ ext - no edema, pulses 2+ b/l psych - a/o x 3 chest - no pain to palpation Results & Data Results & Data ([facility]) Vital Signs (Past 12 Hours) Vital Signs Temp Pulse Resp BP Pulse Ox 08/03/21 19:17 36.6 C 67 20 143/82 H 94 08/03/21 15:55 36.4 C L 85 19 125/77 93 08/03/21 09:53 82 94 Laboratory Results Laboratory Results - last 24 hr 08/03/21 08/03/21 06:23 06:23 WBC 11.87 H RBC 5.37 Hgb 15.7 Hct 46.1 MCV 85.8 MCH 29.2 MCHC 34.1 RDW Std Deviation 40.3 RDW Coeff of Jonathan 12.7 Plt Count 271 MPV 11.0 H Immature Gran % (Auto) 2.0 Neut % (Auto) 75.7 Lymph % (Auto) 12.0 Tate % (Auto) 10.0 Eos % (Auto) 0.1 Baso % (Auto) 0.2 Neut # (Auto) 8.98 H Lymph # (Auto) 1.43 Tate # (Auto) 1.19 H Eos # (Auto) 0.01 Baso # (Auto) 0.02 Immature Gran # (Auto) 0.24 H Creatinine 0.78 Est Cr Clr Drug Dosing 163.2 Est GFR ( Amer) 134.6 Est GFR (Non-Af Amer) 116.1 AST 62 H ALT 170 H Total Creatine Kinase 184 PG Care Time/CCT Total # of Minutes Spent Total Time Spent with Patient: Total time spent is greater than 50% in coordination of care (as documented) at patient's floor/unit and/or counseling patient: Coding Level of Care Code 76780 Subseq Hosp Care Lvl 2 Diagnoses Acute respiratory failure with hypoxia J96.01 Pneumonia due to COVID-19 virus U07.1; J12.82 Anxiety F41.9 Heartburn R12 DVT prophylaxis Z29.9 Transaminitis R74.01 Chest pain R07.9
[2021-08-04 07:23] LABS: BUN Creatinine Ratio 29.5 (10-20); C Reactive Protein 0.69 mg/dl (0-0.29); Calcium 8.8 mg/dl (8.5-10.1); Creatinine Clr Calc Pharmacy 146.3 ml/min; Est GFR (African American) 128.7 ml/min; Potassium 4.3 mmol/L (3.5-5.1)
[2021-08-04] MEDS: PANTOprazole 40 MG TAB PO SCH (07:58)
[2021-08-04] MEDS: ENOXAPARIN INJ 40 MG/0.4 ML SYR SQ SCH (11:50)
--- NOTE | 2021-08-04 13:08 | Discharge Summary ---
Date of Service date of admission - July 31, 2021 date of discharge - August 04, 2021 Admission HPI Per Admitting Provider This is a pleasant 36yo male who presents to the hospital for worsening COVID-19 infection. Patient reports that 10 days ago he had a headache. This was followed by a fever last Saturday (8 days ago), which then followed with a non productive cough the following day. Then during this past week, patient noticed that he was short of breath on exertion. Over the course of his illness, his SOB WORSENED. Patient was seen in the ER yesterday but was not hypoxic. He was sent home on oral prednisone and doxycycline. Patient was also given a home pulse ox. Principal Diagnosis acute hypoxic respiratory failure 2nd to COVID-19 pneumonia Discharge Exam Gen: NAD, looks much better than previous exams HEENT: MMM, no lesions Neck: no JVD Heart: RRR, s1 s2, no murmur Lungs: scant rales b/l bases, good airation, no wheeze; no increased work of breathing Abd: soft, NT, ND, BS+, no HSM Ext: no edema, pulses 2+ b/l Discharge Data Allergies Allergy/AdvReac Type Severity Reaction Status Date / Time azithromycin [From Zithromax] AdvReac Mild Nausea Verified 08/11/21 10:31 Ordered Studies Chest X-Ray 07/31/21 14:43 SINGLE VIEW CHEST CLINICAL HISTORY: Dyspnea. Covid pneumonia. FINDINGS: An AP, portable, upright chest radiograph is compared to study dated 07/30/2021. The cardiomediastinal silhouette is unremarkable. Multifocal airspace consolidation is again seen throughout both lungs with a lower lobe predominance. No large pleural effusion or pneumothorax is identified. The bony thorax is grossly intact. IMPRESSION: Multifocal airspace consolidation is unchanged from yesterday and consistent with the reported history of viral pneumonia. Radiographic follow-up to resolution is recommended. ACT 112: Negative or not required by law. Electronically signed by: Miles Aguirre M.D. 07/31/2021 3:59 PM Hospital Course (1) Acute respiratory failure with hypoxia: 2nd COVID-19 pneumonia. Resolved. With supportive care and treatment of his COVID pneumonia his O2 requirement gradually resolved. By the time he was discharged his O2 sats were normal in room air at rest and with activity. He was asked to self-prone at home and continue pulmonary toilet upon discharge. He will complete 5 additional days of dexamethasone at home. (2) Pneumonia due to COVID-19 virus: Moderate disease with O2 requirement during the stay. Completed 5 days of IV dexamethasone 6mg while hospitalized, and will complete 5 more days of such at home. He had no evidence of complicating bacterial superinfection, CHF, or VTE. O2 was weaned off by the time he was discharged. (3) Transaminitis: 2nd to COVID-19 infection. Slowly improved while hospitalized but his AST/ALT did not fully normalize prior to discharge. He was asked not to drink alcohol until his LFTs were normal. He will need repeat LFTs post-discharge. (4) Chest pain: Resolved w/ NSAIDs while here. EKG demonstrated J-point elevation in several leads. Could be early repolarization, but need to observe carefully for development of pericarditis post-discharge. He was counseled about his symptoms and the EKG findings. (5) Anxiety: (6) Heartburn: Resolved with PPI during the stay. (7) DVT prophylaxis: lovenox 40mg BID was employed while hospitalized. Total Time Total Time Spent Total Time Spent (In Minutes): 40 Discharge Plan Discharge Items Patient Disposition: Home - Self-Care Reason For Visit: COVID-19 Pneumonia Discharge Diagnosis: 1. COVID-19 Pneumonia - improving 2. abnormal liver function tests - due to #1 above 3. modestly abnormal EKG - either normal variant or due to inflammation from COVID - see below Condition on Discharge: Good Activity: As commented below Activity Comment: gradually increase your activities over the next 1-2 weeks Sexual Activity: Wait until after follow-up appointment Exercise/Sports: Wait until after follow-up appointment Driving/Machine Use: Resume 3 days after discharge Non-emergency contact: Primary Care Provider Call non-emergency contact if: you have any medication questions, your symptoms worsen and your temperature is above 101 Follow-up/Referrals: Megan Truong CRNP [Primary Care Provider] - 08/10/21 10:30 am (this apt will be a phone call visit.) Diet: Regular Addtl Attending Provider Instructions: Mr Brice, You were admitted to the hospital for COVID-19 pneumonia. You required oxygen therapy for several days. This was fully weaned off on 08/03/21. Steroids and other measures were taken to treat your infection. In addition, your liver function tests were mildly elevated due to the COVID-19 infection. These will improve over the next 1-2 weeks. You have overall done very nicely during your stay. Recommendations - 1. You are about 14-15 days into your illness and you are unlikely to be contagious to others at this time. You technically do not need to isolate upon return home. However, I would recommend that you take this weekend and spend it at home as you recover. Starting Saturday or so you can re-enter the community. Continue to wear your mask outside your home. 2. Take dexamethasone steroid - 6mg daily with food for 5 additional days starting TOMORROW, 08/05/21. Please throw out the prednisone tablets that were previously prescribed. 3. Feel free to use your albuterol inahler - 2 puffs via spacer every 4 hours as needed for cough or shortness of breath. 4. See your family doctor in about 1 week. Virtual visit (zoom visit, phone call, etc) would be acceptable. You will need blood work at that time to recheck your liver tests. 5. may use cviz-vcu-smqndiy mucinex up to twice daily for cough/congestion. 6. DO NOT RETURN TO WORK UNTIL CLEARED BY YOUR FAMILY DOCTOR. 7. Continue to check your oxygen levels on your finger a couple of times a day over the next week with your "pulse oximeter." If you are consistently less than 90% please seek medical attention. 8. Use your incentive spirometry and flutter valve frequently over the next week. 9. Continue to prone ("tummy time") as much as possible over the next few days. 10. Strongly consider getting a flu shot this fall. 11. Strongly consider getting the COVID vaccine in about 3 months following your recovery to protect against future infection from COVID. 12. No tylenol use or alcohol use until your liver tests are checked and confirmed to be normal. 13. If you experience any recurrent chest pain episodes over the next few weeks please see your doctor right away and have a repeat EKG at that time as your EKG here was mildly abnormal. I would want you to be checked to ensure you do not have pericarditis (inflammation of the sac of the heart, which is treated with motrin and anti-inflammatories). Follow-up - see separate section Return to [facility] if - * you have recurrent fever over 101 degrees * you have recurrent chest pains * you are having worsening shortness of breath * you have oxygen levels consistently less than 90% on your finger checks at home * any other concerns Continue to feel better! It was our pleasure caring for you! -Dr Gottlieb Pending Studies at Discharge: No Stand-Alone Forms: My [facility], Work/School Release, Smoking Cessation Medications and DC Order Prescriptions: Continued ibuprofen 200 mg Tablet 400 mg PO QID PRN (Reason: Pain) RF: 0 Excedrin Migraine 250-250-65 mg Tablet 2 tab PO Q6H PRN (Reason: Headache) RF: 0 Changed albuterol sulfate 90 mcg/actuation HFA aerosol inhaler 3 inh inhalation Q6H PRN (Reason: cough/shortness of breath) Qty: 18 RF: 2 Discontinued prednisone 20 mg tablet 20 mg PO .COMPLEX Qty: 18 RF: 0 doxycycline hyclate 100 mg tablet 100 mg PO BID 7 Days Qty: 14 RF: 0 Discharge Orders: Discharge Order (Routine); Ordered 08/04/21 Ordered By: Anjum John/Other Patient Handouts: Caring for Someone Who Has COVID-19, Disinfecting Your Home of COVID-19, 2019-nCoV, Proning COVID-19 Admission Data Admit Date/Time: 07/31/21 15:16 Attending Provider: Anjum Gottlieb Admit Provider: eDlfin Beyer Primary Care Provider: Megan Truong Other Interventions: Discharge Summary Assessment (RN) Last Done: 08/04/21 13:12 Coding Level of Care Code D/C DAY MANAGEMENT >30 MINS Diagnoses Acute respiratory failure with hypoxia J96.01 Pneumonia due to COVID-19 virus U07.1; J12.82 Anxiety F41.9 Heartburn R12 DVT prophylaxis Z29.9 Transaminitis R74.01 Chest pain R07.9
--- NOTE | 2021-08-04 18:00 | Electrocardiogram Report ---
Test Reason : Blood Pressure : / mmHG Vent. Rate : 069 BPM Atrial Rate : 069 BPM P-R Int : 140 ms QRS Dur : 100 ms QT Int : 424 ms P-R-T Axes : 070 073 067 degrees QTc Int : 454 ms Normal sinus rhythm Minimal voltage criteria for LVH, may be normal variant Early repolarization Borderline ECG When compared with ECG of 03-AUG-2021 08:59, No significant change was found Confirmed by Elliot Murrieta ([id number]) on 08/04/2021 6:00:23 PM Referred By: REFERRED SELF Confirmed By:Nba Murrieta
== END 2021-08-04 13:39 | disposition home or self-care (01) | DRG 177 ==
LOC: ED 13:20 → 2E 15:16 → SUATTDRO 15:16 → 2E 16:24